=== PATIENT | male | born 1980 | race Caucasian/White ===

== ENCOUNTER 2020-08-25 14:33 | Emergency (ER) | payer OTHER, SELFPAY ==
[2020-08-25 17:01] VITALS: BP 141/84; PULSE 88; RESP 16; TEMP 37.4; O2SAT 98
--- NOTE | 2020-08-25 17:08 | ED.ABDPAIN ---
HPI - Abdominal Pain General Chief Complaint: Abdominal Pain Stated Complaint: L SIDED ABD PAIN Time Seen by Provider: 08/25/20 17:08 Source: patient Mode of arrival: ambulatory Limitations: no limitations History of Present Illness HPI narrative: Pain started yesterday, today worse, no dysuria, no hematuria MD elicited complaint: abdominal pain and flank pain Onset (ago): day(s) Pain Consistency: constant Severity: moderate Quality: stabbing and sharp Radiation: L flank Exacerbating factors: nothing Relieving factors: nothing Related Data Previous Rx's Medication Instructions Recorded ciprofloxacin HCl 500 mg PO BID #20 tab 08/25/20 metronidazole [Flagyl] 500 mg PO TID #30 tab 08/25/20 naproxen [Naprosyn] 500 mg PO BID #20 tab 08/25/20 Allergies Allergy/AdvReac Type Severity Reaction Status Date / Time No Known Allergies Allergy Unverified 07/27/20 17:40 [No Known Allergies*] Review of Systems Constitutional: Reports no additional constitutional complaints Eyes: Reports no additional eye complaints Denies dizziness Cardiovascular: Reports no additional cardiovascular complaints Respiratory: Reports as per HPI Gastrointestinal: Reports no additional gastrointestinal complaints Musculoskeletal: Reports no additional musculoskeletal complaints Skin/Breast: Denies rash Reports system reviewed and no additional complaints, except as documented, Denies dizziness and Denies Sensory deficit (Neuro) Psychiatric: Denies anxiety Physical Exam Vital Signs: Vital Signs: Vital Signs Temp Pulse Resp BP Pulse Ox 08/25/20 17:21 99.4 F 91 18 141/84 H 99 08/25/20 17:01 99.4 F 88 16 141/84 H 98 Body Mass Index 36.0 Const: Other: in obvious discomfort General: healthy appearing Nutritional Appearance: average body habitus Orientation/consciousness: oriented to person and patient oriented x3 Limitations: no limitations HENMT: Head: Yes normal to inspection Ears: external ears normal General nose exam: Normal external nose present Mouth: Normal oral and palatal mucosa present and oropharynx normal Throat: Yes posterior oropharynx normal Eyes: General: appearance normal, both eyes and all related structures Neck: Other: supple Neck: Yes normal visual inspection Chest: Chest palpation & inspection: normal inspection of the chest Resp: Auscultation: clear to auscultation bilaterally Cardio: Jugular venous distension: no JVD Rate: regular rate Rhythm: regular rhythm Heart sounds: S1 normal heart sound present and S2 normal heart sound present GI: Other: LLQ guarding to palpation Inspection: Yes normal to inspection Palpation (GI): Soft to palpation, Tenderness to palpation present (GI) and No hepatosplenomegaly present Auscultation: normal bowel sounds Back/Spine/Pelvis: Other: Left CVAT Skin: General skin exam: no rashes or lesions noted Neuro: General: oriented to person and patient oriented x3 Cranial nerves: Yes CN's II-XII intact bilaterally Motor exam (neuro): 5/5 motor strength present throughout Sensory Exam: No Sensory deficit (Neuro) Extrem: General: Yes normal to inspection Psych: Appearance: grossly normal Course Course Course Narrative: will treat for diverticulitis with cipro and flagyl MDM - Abdominal Pain Differential Diagnosis Differential diagnosis: Likely abdominal pain, diverticulitis and renal colic Differential diagnosis narrative:: patient with LLQ pain and flank pain CT consistent with diverticulitis Lab Data Attestation: I reviewed the patient's lab results. Result diagrams: 08/25/20 17:47 08/25/20 17:47 Labs: Lab Results 08/25/20 08/25/20 08/25/20 Range/Units 17:47 17:47 17:47 WBC 13.7 H (4.8-10.8) X10*3/uL RBC 4.78 (4.60-5.80) X10*6/uL Hgb 16.0 (14.0-18.0) g/dl Hct 44.6 (42-52) % MCV 93.3 (80-98) fL MCH 33.5 H (27.0-33.0) pg MCHC 35.9 (31.0-36.0) g/dl RDW 11.9 (11.0-16.0) % Plt Count 178 (160-400) X10*3/uL MPV 9.8 (9.4-12.4) fL Immature Gran % (Auto) 0.5 H (0.0-0.4) % Neut % (Auto) 76.2 H (45-73) % Lymph % (Auto) 10.9 L (20-40) % [place] % (Auto) 11.5 H (2-11) % Eos % (Auto) 0.6 (0-4) % Baso % (Auto) 0.3 (0-2) % Lymph # (Auto) 1.5 (1.2-4.9) X10*3/uL [place] # (Auto) 1.6 H (0.1-1.2) X10*3/uL Eos # (Auto) 0.1 (0.0-0.4) X10*3/uL Baso # (Auto) 0.0 (0.0-0.2) X10*3/uL Abs Immat Gran (auto) 0.07 H (0.00-0.03) X10*3/uL Absolute Neuts (auto) 10.4 H (2.0-8.3) X10*3/uL Absolute Nucleated RBC 0.000 (0.0-0.012) X10*3/uL Nucleated RBC % (auto) 0.0 (0.0-0.2) /100WBC Smear Tech's Comments VERIFIED Sodium 137 (135-145) mmol/L Potassium 4.5 (3.3-5.1) mmol/l Chloride 102 (96-108) mmol/L Carbon Dioxide 26 (22-29) mmol/L Anion Gap 14 (12-20) BUN 13 (9-16) mg/dL Creatinine 1.18 (0.5-1.4) mg/dL Estim Creat Clear Calc 95.7 Estimated GFR > 60 Random Glucose 100 (60-115) mg/dL Calcium 9.4 (8.4-10.2) mg/dL Urine Color YELLOW Urine Appearance CLEAR Urine pH 5.5 (5.0-8.0) Ur Specific [place] >= 1.030 H (1.005-1.025) Urine Protein NEG (NEG-TRACE) MG/DL Urine Glucose (UA) NEG (NEG) MG/DL Urine Ketones NEG (NEG) MG/DL Urine Blood NEG (NEG) Urine Nitrite NEG (NEG) Ur Leukocyte Esterase NEG (NEG) Imaging Data CT scan - abdomen: Radiologist's impression: Diverticulitis Discharge Plan Discharge Clinical Impression: Diverticulitis Patient Disposition: Home, Self-Care Instructions: Diverticulitis (ED), Diverticulitis Diet (ED) Additional Instructions: clear liquid diet for 2 days Prescriptions: New naproxen [Naprosyn] 500 mg tablet 500 mg PO BID Qty: 20 RF: 0 ciprofloxacin HCl 500 mg tablet 500 mg PO BID Qty: 20 RF: 0 metronidazole [Flagyl] 500 mg tablet 500 mg PO TID Qty: 30 RF: 0 PMFSH Past Medical History Medical History (Updated 08/25/20 @ 18:45 by Flynn Ho MD) No known health problems Social History Social History Alcohol intake: never Smoked in Last 30 Days: No Use of substances other than those prescribed or required for medical reasons: No Advance Directives: No Advance Directives Information Provided: Yes
--- NOTE | 2020-08-25 17:12 | CT_ITS ---
EXAMINATION: CT ABDOMEN AND PELVIS WITHOUT CONTRAST CLINICAL INFORMATION: Left flank pain in left lower quadrant pain COMPARISON: 01/25/2016 TECHNIQUE: Multidetector volumetric imaging was performed from the superior aspect of the liver through the pubic symphysis. Sagittal and coronal reformatted images were obtained on the technologist's workstation. This CT examination was performed using dose optimization techniques as appropriate, variously including the following: *Automated exposure control *Adjustment of mA and/or kV according to patient size (this includes techniques or standardized protocols for targeted exams where dose is matched to indication/reason for exam; i.e. extremities or head) *Use of iterative reconstruction technique DLP: 706 mGy-cm FINDINGS: LUNG BASES: The visualized lung bases are unremarkable. LIVER, GALLBLADDER, AND BILIARY TREE: The liver is normal in size, shape, and attenuation. No focal hepatic lesion or biliary ductal dilatation is present. The gallbladder is unremarkable with no evidence of radiopaque gallstones, gallbladder wall thickening, or obvious pericholecystic inflammatory changes. PANCREAS: Unremarkable. SPLEEN: Unremarkable. ADRENAL GLANDS: Unremarkable. KIDNEYS AND URETERS: The kidneys are normal in size, shape, and attenuation. No hydronephrosis, hydroureter, or calculi seen. No perinephric stranding. BLADDER: Unremarkable. GASTROINTESTINAL TRACT: Stomach and small bowel are nondilated. The appendix is not seen but there are no right lower quadrant inflammatory changes to suggest appendicitis. There is wall thickening, pericolonic fluid, and fat stranding of the distal left colon centered about a diverticulum, favoring mild acute diverticulitis over short segment colitis. There is fluid tracking along the left paracolic gutter. No evidence of abscess or perforation. ABDOMINAL WALL: No significant hernia is appreciated. LYMPH NODES: Normal. VASCULAR: Unremarkable. PELVIC VISCERA: Unremarkable. OSSEOUS STRUCTURES: Unremarkable. IMPRESSION: There is wall thickening and pericolonic inflammatory changes centered around a diverticulum of the distal left colon. The appearance favors mild acute diverticulitis over a short segment colitis. No evidence of abscess or perforation.
[2020-08-25 17:21] VITALS: BP 141/84; PULSE 91; RESP 18; TEMP 37.4; O2SAT 99; BMI 36.0
[2020-08-25] MEDS: 0.9 % Sodium Chloride 500 ML 1000 ML IV (17:50)
[2020-08-25] MEDS: Ketorolac Tromethamine 30 MG/ML VIAL IVPUSH (17:50)
[2020-08-25 17:53] LABS: Basophils Percent Auto 0.3 % (0-2); Eosinophils Absolute Auto 0.1 X10*3/uL (0.0-0.4); Eosinophils Percent Auto 0.6 % (0-4); Hematocrit 44.6 % (42-52); Imm Gran Abs Auto 0.07 X10*3/uL (0.00-0.03); Imm Gran Pct Auto 0.5 % (0.0-0.4); Lymphocytes Absolute Auto 1.5 X10*3/uL (1.2-4.9); Lymphocytes Percent Auto 10.9 % (20-40); MANUAL DIFF FLAG SCAN; Mean Corpuscular HGB Conc 35.9 g/dl (31.0-36.0); Mean Corpuscular Hemoglobin 33.5 pg (27.0-33.0); Mean Corpuscular Volume 93.3 fL (80-98); Mean Platelet Volume 9.8 fL (9.4-12.4); Monocytes Absolute Auto 1.6 X10*3/uL (0.1-1.2); Monocytes Percent Auto 11.5 % (2-11); Neutrophils Absolute Auto 10.4 X10*3/uL (2.0-8.3); Neutrophils Percent Auto 76.2 % (45-73); Platelet Count 178 X10*3/uL (160-400); Red Blood Count 4.78 X10*6/uL (4.60-5.80); Red Cell Distribution Width 11.9 % (11.0-16.0); SCAN SMEAR FLAG 1; White Blood Count 13.7 X10*3/uL (4.8-10.8)
[2020-08-25 17:54] LABS: Appearance Urine CLEAR; Color Urine YELLOW; Glucose Urine UA NEG (NEG); Leukocyte Esterase Urine NEG (NEG); Nitrite Urine NEG (NEG); PH 5.5 (5.0-8.0); Specific Gravity - Urine >= 1.030 (1.005-1.025); Urine Blood NEG (NEG); Urine Ketones NEG (NEG); Urine Protein NEG (NEG-TRACE)
[2020-08-25 18:00] VITALS: BP 116/65; PULSE 82; RESP 16; TEMP 37.7; O2SAT 96
[2020-08-25 18:14] LABS: Anion Gap 14 (12-20); Blood Urea Nitrogen 13 mg/dL (9-16); Calcium 9.4 mg/dL (8.4-10.2); Carbon Dioxide 26 mmol/L (22-29); Chloride 102 mmol/L (96-108); Creatinine Clr Calc Pharmacy 95.7; Estimated Glomerular Filt Rate > 60; Glucose Random 100 mg/dL (60-115); Potassium 4.5 mmol/l (3.3-5.1); Sodium 137 mmol/L (135-145)
[2020-08-25 18:17] LABS: SLIDE REVIEW VERIFIED
[2020-08-25] MEDS: metroNIDAZOLE/NS 500 MG/100 ML PIGGYBACK 100 MG IV (18:19)
[2020-08-25] MEDS: Morphine Sulfate 4 MG/ML CARTRIDGE IVPUSH ×2 (18:19→20:23)
[2020-08-25] MEDS: levoFLOXacin/D5W 500 MG/100 ML PIGGYBACK 100 MG IV (19:59)
--- NOTE | 2020-08-25 20:02 | PC.NURSE ---
REPORT TAKEN FROM DENIS HENDERSON. FIRST CONTACT WITH PT. RESTING IN BED SKIN PWD, RESPIRATIONS EVEN UNLABORED. LEVOFLOXACIN HUNG AND INFUSING WITHOUT DIFFICULTY. PT REPORTS 8/10 LLQ PAIN PERSISTS. NOTIFIED, AWAITING EYEGLASS LENS GRINDER.
[2020-08-25 20:21] VITALS: BP 112/57; PULSE 80; RESP 16; TEMP 37.3
--- NOTE | 2020-08-25 20:29 | PC.NURSE ---
PT MEDICATED FOR LLQ PAIN PER MAR, AWAITING IMPROVMENT IN SYMPTOMS, FINISH ABX, AND DC HOME.
== END 2020-08-25 21:33 | disposition home or self-care (01) ==
PROVIDERS: Emergency Provider Emergency Medicine; PCP Internal Medicine
DX: K57.32 Diverticulitis of large intestine without perforation or abscess without bleeding (principal); Z79.899 Other long term (current) drug therapy
CPT/HCPCS: 36415; 74176; 80048; 81003; 85025; 96361; 96365; 96375; 96376; 99284; J1885; J1956; J2270

== ENCOUNTER 2021-05-27 08:14 | Emergency (ER) | payer OTHER, SELFPAY ==
--- NOTE | ~2021-05-27 | CT_ITS ---
EXAMINATION: CT ABDOMEN AND PELVIS WITH CONTRAST CLINICAL INFORMATION: Lower abdominal pain. COMPARISON: 08/25/20. 01/25/16. TECHNIQUE: Multidetector volumetric images were obtained from the superior aspect of the liver through the pubic symphysis following administration 100 mL of Omnipaque 350 intravenous contrast. Sagittal and coronal reformatted images were obtained on the technologist's workstation. Oral contrast: No This CT examination was performed using dose optimization techniques as appropriate, variously including the following: *Automated exposure control *Adjustment of mA and/or kV according to patient size (this includes techniques or standardized protocols for targeted exams where dose is matched to indication/reason for exam; i.e. extremities or head) *Use of iterative reconstruction technique DLP: 862 mGy-cm FINDINGS: LUNG BASES: The visualized lung bases are unremarkable. LIVER, GALLBLADDER, AND BILIARY TREE: The liver is normal in size, shape, and attenuation. No focal hepatic lesion or biliary ductal dilatation is present. The gallbladder is unremarkable with no evidence of radiopaque gallstones, gallbladder wall thickening, or obvious pericholecystic inflammatory changes. PANCREAS: Unremarkable. SPLEEN: Unremarkable. ADRENAL GLANDS: Unremarkable. KIDNEYS AND URETERS: The kidneys are normal in size, shape, and attenuation. No hydronephrosis, hydroureter, or calculi seen. No perinephric stranding. BLADDER: Unremarkable. GASTROINTESTINAL TRACT: Extensive diverticular disease of the colon is again demonstrated. There is pericolonic edema of the junction of the descending and sigmoid colon consistent with acute diverticulitis. No extraluminal air or fluid is demonstrated. Inflammatory changes of the descending colon seen on the prior examination are resolved. The appendix is not visualized. No inflammatory changes are demonstrated in the right lower quadrant. The stomach and duodenum are unremarkable. No abnormality of the small bowel or mesentery is demonstrated. ABDOMINAL WALL: No significant hernia is appreciated. LYMPH NODES: Normal. VASCULAR: Unremarkable. Early calcific atherosclerotic changes are present in the abdominal aorta and iliac vessels. PELVIC VISCERA: Unremarkable. OSSEOUS STRUCTURES: Mild spondylosis is seen in the lower thoracic spine. Otherwise unremarkable. CT/CT abdomen pelvis w con IMPRESSION: 1. Extensive colonic diverticular disease. Inflammatory changes at the junction of the descending colon and sigmoid colon consistent with acute diverticulitis. No extraluminal gas or fluid is demonstrated. No collection. 2. Interval resolution of inflammatory changes seen previously more proximally in the descending colon. 3. No other abnormality.
[2021-05-27 08:31] VITALS: BP 141/79; PULSE 81; RESP 20; TEMP 36.8; O2SAT 97; BMI 36.0
--- NOTE | 2021-05-27 08:37 | ED.ABDPAIN ---
HPI - Abdominal Pain General Chief Complaint: Abdominal Pain Stated Complaint: abd pain Time Seen by Provider: 05/27/21 08:37 Source: patient Mode of arrival: ambulatory Limitations: no limitations History of Present Illness MD elicited complaint: abdominal pain Pertinent past history: diverticulitis Onset (ago): week(s) (1) Pain Consistency: constant Location: LLQ and suprapubic Severity: moderate Quality: aching Radiation: L flank Migration to: no migration Exacerbating factors: movement Relieving factors: nothing Context: history of similar episodes Associated symptoms: nausea Related Data Previous Rx's Medication Instructions Recorded ciprofloxacin HCl 500 mg PO BID #20 tab 08/25/20 metronidazole [Flagyl] 500 mg PO TID #30 tab 08/25/20 naproxen [Naprosyn] 500 mg PO BID #20 tab 08/25/20 hydrocodone-acetaminophen 1 tab PO Q6H PRN #12 tab 05/27/21 levofloxacin 500 mg PO DAILY 6 Days #6 tab 05/27/21 metronidazole [Flagyl] 500 mg PO BID 7 Days #14 tab 05/27/21 ondansetron 4 mg PO Q8H PRN #20 tab 05/27/21 Allergies Allergy/AdvReac Type Severity Reaction Status Date / Time No Known Allergies Allergy Unverified 07/27/20 17:40 [No Known Allergies*] Review of Systems Review of Systems Constitutional : No Weight loss, No Fever, No Chills ENT/Mouth : No sore throat, No Rhinorrhea Eyes: No Swelling, No Redness Cardiovascular : No Chest Pain, No SOB, NoEdema Respiratory : No Cough, No Sputum, No Wheezing Gastrointestinal : Positive Nausea, no Vomiting, no Diarrhea, positive abdominal Pain, No Hematochezia, No Melena Genitourinary : No Dysuria, No Urinary Frequency, No Hematuria, No Urgency Musculoskeletal : No joint pain, No Myalgias, No Joint Swelling Skin : No Skin Lesions, No rash Neuro : No Weakness, No Numbness, No Dizziness, No Headache Psych : No Anxiety/Panic, No Depression Heme/Lymph: No Bruising, No Lymphadenopathy Endocrine : No Polyuria, No Polydipsia All other systems reviewed and are negative. Physical Exam Vital Signs: Vital Signs: Last Vital Signs Temp 98.3 F 05/27/21 08:31 Pulse 68 05/27/21 10:52 Resp 16 05/27/21 10:52 BP 122/68 05/27/21 10:52 Pulse Ox 97 05/27/21 10:52 Body Mass Index 36.0 Appearance: Alert. Oriented X3. No acute distress. Eyes: Pupils equal, round and reactive to light. ENT: Pharynx normal. Neck: Normal inspection. Neck supple. CVS: Normal heart rate and rhythm. Pulses normal. Respiratory: No respiratory distress. Breath sounds normal. Abdomen: Soft and moderate LLQ ttp no rebound or guarding Skin: Skin warm and dry. Normal skin color. Normal skin turgor. Extremities: No lower extremity edema. No calf ttp Neuro: Oriented X 3. No motor deficit. No sensory deficit. Course Course Course Narrative: at this time can tolerate PO stable for DC MDM - Abdominal Pain MDM Narrative Medical decision making narrative: 41 yo male with hx of diverticulitis at this time will need labs, IVF, IV morphine for pain, CT scan for diverticulitis, dispo per results and findings. Differential Diagnosis Differential diagnosis: Likely abdominal pain, calculus of kidney and diverticulitis; Unlikely acute appendicitis Lab Data Result diagrams: 05/27/21 08:55 05/27/21 08:55 Labs: Lab Results 05/27/21 05/27/21 05/27/21 Range/Units 08:55 08:55 08:55 WBC 8.5 (4.8-10.8) X10*3/uL RBC 4.39 L (4.60-5.80) X10*6/uL Hgb 14.5 (14.0-18.0) g/dl Hct 40.7 L (42-52) % MCV 92.7 (80-98) fL MCH 33.0 (27.0-33.0) pg MCHC 35.6 (31.0-36.0) g/dl RDW 11.7 (11.0-16.0) % Plt Count 153 L (160-400) X10*3/uL MPV 9.6 (9.4-12.4) fL Immature Gran % (Auto) 0.5 H (0.0-0.4) % Neut % (Auto) 63.3 (45-73) % Lymph % (Auto) 22.3 (20-40) % [place] % (Auto) 10.0 (2-11) % Eos % (Auto) 3.4 (0-4) % Baso % (Auto) 0.5 (0-2) % Lymph # (Auto) 1.9 (1.2-4.9) X10*3/uL [place] # (Auto) 0.9 (0.1-1.2) X10*3/uL Eos # (Auto) 0.3 (0.0-0.4) X10*3/uL Baso # (Auto) 0.0 (0.0-0.2) X10*3/uL Abs Immat Gran (auto) 0.04 H (0.00-0.03) X10*3/uL Absolute Neuts (auto) 5.4 (2.0-8.3) X10*3/uL Absolute Nucleated RBC 0.000 (0.0-0.012) X10*3/uL Nucleated RBC % (auto) 0.0 (0.0-0.2) /100WBC Smear Tech's Comments Not Reportable Sodium 139 (135-145) mmol/L Potassium 4.4 (3.3-5.1) mmol/L Chloride 108 (96-108) mmol/L Carbon Dioxide 23 (22-29) mmol/L Anion Gap 12 (12-20) BUN 14 (9-16) mg/dL Creatinine 1.09 (0.5-1.4) mg/dL Estim Creat Clear Calc 102.6 Estimated GFR > 60 Random Glucose 124 H (60-115) mg/dL Calcium 8.9 (8.4-10.2) mg/dL Urine Color YELLOW Urine Appearance CLEAR Urine pH 6.0 (5.0-8.0) Ur Specific [place] 1.025 (1.005-1.025) Urine Protein NEG (NEG-TRACE) MG/DL Urine Glucose (UA) NEG (NEG) MG/DL Urine Ketones NEG (NEG) MG/DL Urine Blood NEG (NEG) Urine Nitrite NEG (NEG) Ur Leukocyte Esterase NEG (NEG) Discharge Plan Discharge Clinical Impression: Diverticulitis Patient Disposition: Home, Self-Care Instructions: Diverticulitis (ED) Additional Instructions: return to ED for any worsening symptoms or concerns Prescriptions: New levofloxacin 500 mg tablet 500 mg PO DAILY 6 Days Qty: 6 RF: 0 hydrocodone-acetaminophen 5-325 mg tablet 1 tab PO Q6H PRN (Reason: pain) Qty: 12 RF: 0 metronidazole [Flagyl] 500 mg tablet 500 mg PO BID 7 Days Qty: 14 RF: 0 ondansetron 4 mg tablet,disintegrating 4 mg PO Q8H PRN (Reason: nausea and vomiting) Qty: 20 RF: 0 No Action naproxen [Naprosyn] 500 mg tablet 500 mg PO BID Qty: 20 RF: 0 ciprofloxacin HCl 500 mg tablet 500 mg PO BID Qty: 20 RF: 0 metronidazole [Flagyl] 500 mg tablet 500 mg PO TID Qty: 30 RF: 0 Referrals: Giuseppe Hope MD [Primary Care Provider] - 2 days (you're going to need to see your doctor for GI follow up) Stand Alone Forms: Work/School Release [facility] Past Medical History Attestation statement: The following information was validated with the patient. Medical History (Updated 05/27/21 @ 11:28 by Laura Mishra DO) Diverticulitis No known health problems Surgical History Hx of appendectomy Social History Social History Alcohol intake: current Alcohol intake frequency: holidays/special occasions only Patient Tobacco Use Status: Current everyday Tobacco user Smoked in Last 30 Days: Yes Use of substances other than those prescribed or required for medical reasons: No Advance Directives: Yes Advance Directives Information Provided: Yes Advance Directives on File: No
--- NOTE | 2021-05-27 08:56 | PC.NURSE ---
Peripheral iv inserted in right ac with a 20 gauge insyte. Labs drawn, site flushe with ns and secured. Pt tolerated well
[2021-05-27 09:05] LABS: Eosinophils Absolute Auto 0.3 X10*3/uL (0.0-0.4); MANUAL DIFF FLAG SCAN; Mean Corpuscular Volume 92.7 fL (80-98); PLT CLUMP 1; SCAN SMEAR FLAG 1
[2021-05-27 09:07] LABS: Basophils Percent Auto 0.5 % (0-2); Eosinophils Percent Auto 3.4 % (0-4); Glucose Urine UA NEG (NEG); Hematocrit 40.7 % (42-52); Hemoglobin 14.5 g/dl (14.0-18.0); Imm Gran Abs Auto 0.04 X10*3/uL (0.00-0.03); Imm Gran Pct Auto 0.5 % (0.0-0.4); Leukocyte Esterase Urine NEG (NEG); Lymphocytes Absolute Auto 1.9 X10*3/uL (1.2-4.9); Lymphocytes Percent Auto 22.3 % (20-40); Mean Corpuscular HGB Conc 35.6 g/dl (31.0-36.0); Mean Platelet Volume 9.6 fL (9.4-12.4); Monocytes Absolute Auto 0.9 X10*3/uL (0.1-1.2); Neutrophils Absolute Auto 5.4 X10*3/uL (2.0-8.3); Neutrophils Percent Auto 63.3 % (45-73); Nitrite Urine NEG (NEG); Platelet Count 153 X10*3/uL (160-400); Red Blood Count 4.39 X10*6/uL (4.60-5.80); Red Cell Distribution Width 11.7 % (11.0-16.0); Specific Gravity - Urine 1.025 (1.005-1.025); Urine Blood NEG (NEG); Urine Ketones NEG (NEG); Urine Protein NEG (NEG-TRACE); White Blood Count 8.5 X10*3/uL (4.8-10.8)
[2021-05-27] MEDS: 0.9 % Sodium Chloride 1,000 ML 999 ML IVCONT (09:07)
[2021-05-27] MEDS: ondansetron HCL 4 MG/2 ML VIAL IVPUSH (09:07)
[2021-05-27 09:08] VITALS: RESP 16
[2021-05-27 09:08] LABS: Appearance Urine CLEAR; Color Urine YELLOW
[2021-05-27] MEDS: Morphine Sulfate 4 MG/ML CARTRIDGE IVPUSH (09:08)
[2021-05-27 09:11] VITALS: BP 128/72; PULSE 70; RESP 16; O2SAT 94
[2021-05-27] MEDS: Ketorolac Tromethamine 30 MG/ML VIAL IVPUSH (09:19)
[2021-05-27 09:34] LABS: Anion Gap 12 (12-20); Blood Urea Nitrogen 14 mg/dL (9-16); Calcium 8.9 mg/dL (8.4-10.2); Carbon Dioxide 23 mmol/L (22-29); Chloride 108 mmol/L (96-108); Creatinine Clr Calc Pharmacy 102.6; Estimated Glomerular Filt Rate > 60; Glucose Random 124 mg/dL (60-115); Potassium 4.4 mmol/L (3.3-5.1); Sodium 139 mmol/L (135-145)
[2021-05-27 09:40] VITALS: BP 114/64; PULSE 66; RESP 16; O2SAT 98
[2021-05-27 10:52] VITALS: BP 122/68; PULSE 68; RESP 16; O2SAT 97
[2021-05-27] MEDS: iohexoL 350 MG/ML 100 ML INFUS..BTL IV (10:54)
[2021-05-27] MEDS: levoFLOXacin 500 MG TABLET PO (11:34)
[2021-05-27] MEDS: metroNIDAZOLE 500 MG TABLET PO (11:34)
[2021-05-27 13:58] LABS: Alanine Aminotransferase 76 U/L (0-40); Albumin Level 4.3 g/dL (3.5-5.0); Alkaline Phosphatase 63 U/L (39-117); Aspartate Amino Transferase 26 U/L (5-37); Bilirubin Direct 0.2 mg/dL (0.0-0.5); Bilirubin Total 0.8 mg/dL (0.0-1.0); Lipase 82 U/L (8-78)
== END 2021-05-27 11:39 | disposition home or self-care (01) ==
PROVIDERS: Emergency Provider Emergency Medicine; PCP Internal Medicine
DX: K57.32 Diverticulitis of large intestine without perforation or abscess without bleeding (principal); R10.32 Left lower quadrant pain; F17.200 Nicotine dependence, unspecified, uncomplicated; Z71.6 Tobacco abuse counseling; Z79.899 Other long term (current) drug therapy
CPT/HCPCS: 36415; 74177; 80048; 80076; 81003; 83690; 83735; 85025; 96365; 96375; 99284; 99285; J1885; J2270; J2405; Q9967

== ENCOUNTER 2021-10-26 12:03 | Day surgery (SDC) | payer OTHER, SELFPAY ==
--- NOTE | 2021-10-24 13:45 | P.CONAN_ITS ---
Documented by User: Goergia Valera NP 10/24/21 13:46 HPI - Anesthesia Eval Consult details Narrative: 41yo M for Colonoscopy [facility] Past Medical History Medical History (Updated 05/28/21 @ 00:01 by Background Veronica) Diverticulitis No known health problems Surgical History Surgical History Hx of appendectomy Social History Social History Alcohol intake: current Alcohol intake frequency: a few times a month Patient Tobacco Use Status: Current everyday Tobacco user Tobacco use type: Cigarette Cigarette Packs Per Day: 1 Cigarettes Per Day: 20.0 Years Smoked: 25 Smoked in Last 30 Days: Yes Use of substances other than those prescribed or required for medical reasons: No Are you DNR?: No Advance Directives: No Advance Directives Information Provided: Yes Meds Allergies Allergy/AdvReac Type Severity Reaction Status Date / Time No Known Allergies Allergy Verified 10/26/21 12:09 [No Known Allergies*] Home Medications Medication Instructions Recorded Confirmed Last Taken Type No Known Home Meds 10/19/21 10/19/21 Unknown History Exam Exam Date and Time: October 24, 2021 1345 Pertinent Lab Results Pertinent Lab Results: Laboratory Tests 05/27/21 05/27/21 08:55 08:55 WBC 8.5 Hgb 14.5 Hct 40.7 L Plt Count 153 L Sodium 139 Potassium 4.4 Chloride 108 Carbon Dioxide 23 BUN 14 Creatinine 1.09 Assessment and Plan Assessment Anesthesia Assessment: Chart Reviewed Documented by User: Hortencia Caldwell MD 10/26/21 13:10 [facility] Past Medical History Medical History (Updated 05/28/21 @ 00:01 by Background Daricky) Diverticulitis No known health problems Family History Family history of problems with anesthesia: No Surgical History Surgical History Hx of appendectomy History of Problems with Anesthesia: No Social History Social History Alcohol intake: current Alcohol intake frequency: a few times a month Patient Tobacco Use Status: Current everyday Tobacco user Tobacco use type: Cigarette Cigarette Packs Per Day: 1 Cigarettes Per Day: 20.0 Years Smoked: 25 Smoked in Last 30 Days: Yes Use of substances other than those prescribed or required for medical reasons: No Are you DNR?: No Advance Directives: No Advance Directives Information Provided: Yes Meds Allergies Allergy/AdvReac Type Severity Reaction Status Date / Time No Known Allergies Allergy Verified 10/26/21 12:09 [No Known Allergies*] Home Medications Medication Instructions Recorded Confirmed Last Taken Type No Known Home Meds 10/19/21 10/19/21 Unknown History Exam Airway Mallampati Class: II TM Dist: >3cm Neck ROM: Full Heart: rrr Lungs: cta Assessment and Plan Assessment Anesthesia Assessment: Anesthesia Plan Discussed and Chart Reviewed Final Anesthetic Review Family History of Problems with Anesthesia: No History of Problems with Anesthesia: No NPO: Yes ASA Class: II Final Preanesthetic Review: No Changes in Pt Med Stat, Meds/Allgs Chart Reviewed and Consent Obtained/Reviewed Patient Risk: Intermediate Procedure Risk: Intermediate Anesthetic Plan Anesthetic Plan: MAC: Disposition: Standard PACU
[2021-10-26 12:12] VITALS: BMI 36.0
[2021-10-26 12:20] VITALS: BP 145/86; PULSE 76; RESP 16; TEMP 36.5; O2SAT 97
[2021-10-26] MEDS: Lactated Ringers 1,000 ML 100 ML IVCONT (12:36)
[2021-10-26 13:57] VITALS: BP 129/67; PULSE 77; RESP 12; TEMP 36.2; O2SAT 95
--- NOTE | 2021-10-26 14:03 | PM.OP ---
Brief Operative Note Date of Service: 10/26/21 Pre-op diagnosis: Diverticulitis Post-op diagnosis: other (Diverticulosis) Procedure: Colonoscopy to the cecum and TI Surgeon: Alfredo Anderson Anesthesia: MAC Was an Head Banquet Waitress used for this Procedure?: No Estimated blood loss (mL): 0 Pathology: none sent Condition: stable Disposition: PACU
[2021-10-26 14:12] VITALS: BP 132/84; PULSE 74; RESP 16; TEMP 36.2; O2SAT 96
--- NOTE | 2021-10-26 16:49 | OP_ITS ---
SURGEON: Alfredo Anderson MD INDICATIONS: The patient presents for evaluation of history of diverticulitis and abnormal CT scan of colon. Full consent was obtained from him for this, including risks of bleeding and perforation. PREOPERATIVE DIAGNOSIS: History of diverticulitis and abnormal CT scan of colon. POSTOPERATIVE DIAGNOSIS: History of diverticulitis and abnormal CT scan of colon, diverticulosis and internal hemorrhoids. PROCEDURE PERFORMED: Colonoscopy to the cecum and terminal ileum. ESTIMATED BLOOD LOSS: COMPLICATIONS: ANESTHESIA: Preop medication used, monitored anesthesia care. ASSISTANTS: SPECIMENS: DESCRIPTION OF PROCEDURE: The patient was placed in the left lateral decubitus position. The digital rectal exam revealed no abnormalities. The Olympus video pediatric colonoscope was entered into the rectum and advanced easily to the cecum. Once in the cecum, I did identify normal-appearing cecal pouch with appendiceal orifice and a normal-appearing ileocecal valve. The terminal ileum was cannulated and appeared normal. Scope was withdrawn back in the colon. The entire cecum and ileocecal valve appeared normal. The scope was slowly withdrawn assessing all mucosal surfaces carefully. Preparation was excellent. I did not visualize any sign of polyps, colitis, nor angiodysplasia. There was a [id number] amount of diverticulosis in the sigmoid colon. In the rectum, the scope was retroflexed visualizing small internal hemorrhoids, but no other pathology. The rectal mucosa appeared normal. Scope was straightened and withdrawn from the patient. He tolerated the procedure well and was returned to the recovery area in stable condition. IMPRESSION: 1. Diverticulosis. 2. Internal hemorrhoids. PLAN: Given the negative colonoscopy in regard to polyps, I would recommend a repeat colonoscopy in 10 years. He was advised to continue Metamucil. If he continues to have intermittent episodes of diverticulitis, I would then recommend eventual surgery consultation given his young age. This has been discussed with his . If things are stable, he would otherwise see me on a p.r.n. basis. MD JAMSHID Galvan/TRAVON / [phone]
== END 2021-10-26 15:11 | disposition home or self-care (01) ==
PROVIDERS: PCP Internal Medicine; Visit Provider Internal Medicine
PROC: 0DJD8ZZ Inspection of Lower Intestinal Tract, Via Natural or Artificial Opening Endoscopic (ICD-10-PCS; CPT 45378; principal; 2021-10-26 13:00)
DX: K57.30 Diverticulosis of large intestine without perforation or abscess without bleeding (principal); Z87.19 Personal history of other diseases of the digestive system; K64.8 Other hemorrhoids; F17.210 Nicotine dependence, cigarettes, uncomplicated
CPT/HCPCS: 45378; J3010

== ENCOUNTER 2021-11-10 12:08 | Outpatient (REF) | payer OTHER, SELFPAY ==
[2021-11-10 13:25] LABS: COVID-19 Test Positive (Negative)
== END 2021-11-10 12:09 | disposition home or self-care (01) ==
LOC: HO.LAB 12:08
PROVIDERS: Visit Provider Internal Medicine
DX: Z20.822 Contact with and (suspected) exposure to COVID-19 (principal)
CPT/HCPCS: 36415; 87635; C9803

== ENCOUNTER 2025-01-06 16:26 | Emergency (ER) | payer OTHER, SELFPAY ==
--- NOTE | 2025-01-06 | ECG_ITS ---
Test Reason : CHEST PAIN Blood Pressure : */* mmHG Vent. Rate : 71 BPM Atrial Rate : 71 BPM P-R Int : 148 ms QRS Dur : 84 ms QT Int : 364 ms P-R-T Axes : 42 8 31 degrees QTcB Int : 395 ms Normal sinus rhythm Normal ECG When compared with ECG of 07-Feb-2017 06:57, No significant change was found Referred By: Generic ED Physician Electronically Signed By: Garrison Nash
--- NOTE | ~2025-01-06 | XR_ITS ---
CLINICAL HISTORY: Chest pain 1 view chest x-ray Comparison: None Findings: No consolidation or effusion. Prominent cardiac silhouette. No acute fracture. IMPRESSION: 1. No acute findings. This document has been electronically signed by: Tyler Taylor MD on 01/06/2025 20:04:14
[2025-01-06 16:40] VITALS: BP 147/83; PULSE 69; RESP 18; TEMP 36.4; O2SAT 97; BMI 38.0
[2025-01-06 19:38] LABS: Basophils Percent Auto 0.5 % (0-2); Eosinophils Absolute Auto 0.2 X10*3/uL (0.0-0.4); Eosinophils Percent Auto 2.3 % (0-4); Hematocrit 42.9 % (42.0-52.0); Hemoglobin 15.7 g/dl (14.0-18.0); Imm Gran Abs Auto 0.03 X10*3/uL (0.00-0.03); Imm Gran Pct Auto 0.4 % (0.0-0.4); Lymphocytes Absolute Auto 3.2 X10*3/uL (1.2-4.9); Lymphocytes Percent Auto 41.5 % (20-40); MANUAL DIFF FLAG NO; Mean Corpuscular HGB Conc 36.6 g/dl (31.0-36.0); Mean Corpuscular Hemoglobin 33.1 pg (27.0-33.0); Mean Corpuscular Volume 90.5 fL (80.0-98.0); Mean Platelet Volume 9.3 fL (9.4-12.4); Monocytes Absolute Auto 0.7 X10*3/uL (0.1-1.2); Monocytes Percent Auto 8.7 % (2-11); Neutrophils Absolute Auto 3.6 x10*3/uL (2.0-8.3); Neutrophils Percent Auto 46.6 % (45-73); Platelet Count 155 X10*3/uL (160-400); Red Blood Count 4.74 X10*6/uL (4.60-5.80); Red Cell Distribution Width 12.2 % (11.0-16.0); White Blood Count 7.8 X10*3/uL (4.8-10.8)
[2025-01-06 19:43] LABS: INTERNATIONAL NORM RATIO 1.2 (0.9-1.1); Prothrombin Time 14.2 SEC (10.9-12.4)
[2025-01-06 19:52] LABS: Alanine Aminotransferase 156 U/L (0-40); Albumin Level 4.4 g/dL (3.5-5.0); Alkaline Phosphatase 68 U/L (39-117); Anion Gap 14 (12-20); Aspartate Amino Transferase 70 U/L (5-37); Bilirubin Total 0.6 mg/dL (0.0-1.0); Blood Urea Nitrogen 15 mg/dL (9-16); Calcium 9.3 mg/dL (8.4-10.2); Carbon Dioxide 24 mmol/L (22-29); Chloride 105 mmol/L (96-108); Creatinine Clr Calc Pharmacy 110.4; Estimated Glomerular Filt Rate > 60; Glucose Random 133 mg/dL (60-115); Potassium 4.1 mmol/L (3.3-5.1); Sodium 139 mmol/L (135-145); Total Protein 7.6 g/dL (6.5-8.0)
[2025-01-06 19:57] LABS: B Type Natriuretic Peptide < 10 pg/mL (<100)
[2025-01-06 19:59] LABS: Troponin-I High Sensitivity < 2.7 ng/L (<3.5-35.0)
[2025-01-06 20:04] LABS: Partial Thromboplastin Time 71.9 SEC (26.0-36.8)
--- NOTE | 2025-01-06 20:07 | PC.NURSE ---
took critical from lab PTT 71.9. Provider in triage Perry notified
[2025-01-06 20:46] LABS: Partial Thromboplastin Time 71.2 SEC (26.0-36.8)
--- NOTE | 2025-01-06 22:35 | ED_ITS ---
HPI - Chest Pain General Chief Complaint: Chest Pain Stated Complaint: CP, sent by Urgent care Time Seen by Provider: 01/06/25 22:33 History of Present Illness ED Provider: Nohelia MENDOZA narrative: 44-year-old male presenting for chest pain. Patient states that while in bed last night he experienced sharp left-sided chest pain and he has since been experiencing this chest pain intermittently throughout the day. He was seen at urgent care who recommended to come to the emergency department for further evaluation. Patient states that the chest pain is not associated with activity and he does not experience shortness of breath or diaphoresis. Patient denies recent travel, recent surgeries, history of blood clots. Related Data Home Medications ?Medication ?Instructions ?Recorded ?Confirmed No Known Home Meds 10/19/21 10/19/21 Allergies Allergy/AdvReac Type Severity Reaction Status Date / Time No Known Allergies Allergy Verified 01/06/25 16:43 [No Known Allergies*] Review of Systems 2 Review of Systems: Yes all other systems are reviewed and are negative PMFSH Past Medical History Medical History Diverticulitis No known health problems Surgical History Hx of appendectomy Social History Social History Alcohol intake: current Alcohol intake frequency: a few times a month Patient Tobacco Use Status: Current everyday Tobacco user Tobacco use type: Cigarette Cigarette Packs Per Day: 1 Cigarettes Per Day: 20.0 Years Smoked: 25 Advance Directives: No Advance Directives Information Provided: Yes Physical Exam 2 Vital Signs: Vital Signs: Last Vital Signs Temp 97.5 F 01/06/25 16:40 Pulse 69 01/06/25 16:40 Resp 18 01/06/25 16:40 BP 147/83 H 01/06/25 16:40 Pulse Ox 97 01/06/25 16:40 O2 Del Method Room Air 01/06/25 16:40 BMI result Body Mass Index 38.0 Well-appearing male in no acute distress A&O x4; normal speech and cognition Walking with steady gait Lungs clear to auscultation bilaterally Normal S1-S2 regular rate rhythm Abdomen is soft nontender nondistended No signs of bleeding in mouth or externally Medical Decision Making Medical Decision Making MDM Narrative: 44-year-old male presenting for chest pain -I am concerned for the following; atypical chest pain, costochondritis, pruritus, acid reflux -low suspicion for ACS given reassuring physical exam and HPI; low heart score -patient has none of the following; calf swelling, recent surgeries/hospitalization, recent travel - percs out; I do not think this is PE -labs and imaging studies ordered Lab and imaging interpretations: -no overt signs of ischemia patient's ECG -I do not appreciate pneumo or consolidation on chest x-ray; no acute findings per Radiology impression -no white count, stable H&H, electrolytes within normal limits -negative BNP -elevated PTT -negative troponins x2 Unclear etiology for elevated PTT however pt has no signs of active bleeding; no petechia or bruising/bleeding in mouth Pt does states that for years he intermittently experiences bleeding when brushing his mouth and blowing his nose; I explained that I do not think this is related to his chest pain however I recommend he follow up with his PCP and a automotive airconditioning mechanic I obtained a repeat ecg which is unchanged. He has not had any episodes of chest pain here in the ED. I walked him up and down the he and he did not experience chest pain or sob I feel that patient can be discharged with outpatient followup. He does not need admission for additional testing. I gave him follow up instructions and return precautions Lab Data 01/06/25 19:33 01/06/25 19:33 Labs: Lab Results 01/06/25 01/06/25 01/06/25 Range/Units 19:33 20:32 23:03 WBC 7.8 (4.8-10.8) X10*3/uL RBC 4.74 (4.60-5.80) X10*6/uL Hgb 15.7 (14.0-18.0) g/dl Hct 42.9 (42.0-52.0) % MCV 90.5 (80.0-98.0) fL MCH 33.1 H (27.0-33.0) pg MCHC 36.6 H (31.0-36.0) g/dl RDW 12.2 (11.0-16.0) % Plt Count 155 L (160-400) X10*3/uL MPV 9.3 L (9.4-12.4) fL Immature Gran % (Auto) 0.4 (0.0-0.4) % Neut % (Auto) 46.6 (45-73) % Lymph % (Auto) 41.5 H (20-40) % [place] % (Auto) 8.7 (2-11) % Eos % (Auto) 2.3 (0-4) % Baso % (Auto) 0.5 (0-2) % Lymph # (Auto) 3.2 (1.2-4.9) X10*3/uL [place] # (Auto) 0.7 (0.1-1.2) X10*3/uL Eos # (Auto) 0.2 (0.0-0.4) X10*3/uL Baso # (Auto) 0.0 (0.0-0.2) X10*3/uL Abs Immat Gran (auto) 0.03 (0.00-0.03) X10*3/uL Absolute Neuts (auto) 3.6 (2.0-8.3) x10*3/uL Absolute Nucleated RBC 0.000 (0.0-0.012) X10*3/uL Nucleated RBC % (auto) 0.0 (0.0-0.2) /100WBC PT 14.2 H (10.9-12.4) SEC INR 1.2 H (0.9-1.1) APTT 71.9 H* 71.2 H* (26.0-36.8) SEC Sodium 139 (135-145) mmol/L Potassium 4.1 (3.3-5.1) mmol/L Chloride 105 (96-108) mmol/L Carbon Dioxide 24 (22-29) mmol/L Anion Gap 14 (12-20) BUN 15 (9-16) mg/dL Creatinine 1.01 (0.5-1.4) mg/dL Estim Creat Clear Calc 110.4 Estimated GFR > 60 Random Glucose 133 H (60-115) mg/dL Calcium 9.3 (8.4-10.2) mg/dL Total Bilirubin 0.6 (0.0-1.0) mg/dL AST 70 H (5-37) U/L ALT 156 H (0-40) U/L Alkaline Phosphatase 68 (39-117) U/L Troponin I High Sens < 2.7 < 2.7 (<3.5-35.0) ng/L B-Natriuretic Peptide < 10 (<100) pg/mL Total Protein 7.6 (6.5-8.0) g/dL Albumin 4.4 (3.5-5.0) g/dL Lipase 18 Cancelled (8-78) U/L Influenza Type A (PCR) NEGATIVE (Negative) Influenza Type B (PCR) NEGATIVE (Negative) RSV RNA Qual (PCR) NEGATIVE (Negative) SARS-CoV-2 RNA (RT-PCR) NEGATIVE (Negative) Discharge Plan Discharge Clinical Impression: Elevated partial thromboplastin time (PTT) Chest pain Qualifiers: Chest pain type: unspecified Qualified Code(s): R07.9 - Chest pain, unspecified Patient Disposition: Home, Self-Care Instructions: Vitamin K in Foods (ED) Additional Instructions: Please follow up with your PCP in the next 24-48 hours for reassessment. You should also follow up with the automotive airconditioning mechanic for additional blood testing. If you develop any new or worsening symptoms please return to the emergency department I listed a few automotive airconditioning mechanic you can attempt to follow up with Prescriptions: No Action No Known Home Meds Referrals: Alfredo Root MD [Physician] - Sudha Yeung MD [Physician] - Kerline Rich MD [Physician] - Print Language: Estonian
[2025-01-06 23:26] LABS: Lipase 18 U/L (8-78)
[2025-01-06 23:32] LABS: Troponin-I High Sensitivity < 2.7 ng/L (<3.5-35.0)
[2025-01-06 23:44] LABS: Influenza A PCR NEGATIVE (Negative); Influenza B PCR NEGATIVE (Negative); Resp Syncy Virus RNA Qual PCR NEGATIVE (Negative); SARS COV2 PCR INHOUSE NEGATIVE (Negative)
--- NOTE | 2025-01-06 23:57 | ECG_ITS ---
Test Reason : repeat Blood Pressure : */* mmHG Vent. Rate : 58 BPM Atrial Rate : 58 BPM P-R Int : 156 ms QRS Dur : 84 ms QT Int : 396 ms P-R-T Axes : 48 17 37 degrees QTcB Int : 388 ms Sinus bradycardia Nonspecific T wave abnormality Abnormal ECG When compared with ECG of 06-Jan-2025 16:36, No significant change was found Referred By: Nain Pozo Electronically Signed By: Garrison Nash
--- NOTE | 2025-01-07 00:17 | MHC.EDTECH ---
Liver panel lab verbally cancelled per doctor
[2025-01-07 00:33] LABS: Bilirubin Direct 0.2 mg/dL (0.0-0.5)
[2025-01-07 00:51] VITALS: BP 140/81; PULSE 64; RESP 18; O2SAT 97
--- NOTE | 2025-01-07 01:05 | PC.NURSE ---
pt ambulatory at discharge pt at bedside pt verbalized understanding of discharge plan
[2025-01-07 01:06] VITALS: BP 140/81; PULSE 64; RESP 18; TEMP -17.7; TEMP 0; O2SAT 97
== END 2025-01-07 01:07 | disposition home or self-care (01) ==
PROVIDERS: Physician Assistant; Emergency Provider Student in an Organized Health Care Education/Training Program; PCP Family Medicine
DX: R07.9 Chest pain, unspecified (principal); R79.1 Abnormal coagulation profile; F17.210 Nicotine dependence, cigarettes, uncomplicated; Z03.818 Encounter for observation for suspected exposure to other biological agents ruled out
CPT/HCPCS: 0241U; 36415; 71045; 80053; 82248; 83690; 83880; 84484; 85025; 85610; 85730; 93005; 99283; 99284

== ENCOUNTER → 2025-01-06 16:36 | Outpatient (BNV) | payer OTHER, SELFPAY | PROVIDERS: Emergency Provider Student in an Organized Health Care Education/Training Program; PCP Family Medicine; Visit Provider Internal Medicine Cardiovascular Disease | DX: R07.9 Chest pain, unspecified (principal); R00.1 Bradycardia, unspecified | CPT/HCPCS: 93010 ==

== ENCOUNTER → 2025-01-06 19:15 | Outpatient (BNV) | payer OTHER, SELFPAY | PROVIDERS: Visit Provider Radiology Diagnostic Radiology | DX: R07.9 Chest pain, unspecified (principal) | CPT/HCPCS: 71045 ==

== ENCOUNTER 2025-06-22 14:46 | Outpatient (AMB) | payer OTHER, SELFPAY ==
--- NOTE | 2025-06-22 14:48 | A.OFFPC_ITS ---
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 Allergies No Known Allergies (No Known Allergies*) Allergy (Verified 06/22/25 14:51) Medication List - Last Reconciled 06/22/25 by Kirk Salinas MD No Known Home Meds Tobacco use date assessed: 06/22/25 Dental Screening Dental Screen Date: 06/22/25 Did you have a dental visit in the last 12 months?: No Did you have a dental problem in the last 6 months where you did not have access to dental care?: No Was dental information given to patient?: Patient has dentist HPI Frontload Driver / Annual PE HPI Details New Patient? ?? Prior PCP:?Dr Geronimo Last office visit/CPE:? 1 yr Acute issue(s):? Chest Pain ?? PMHx:? Diverticulitis. SurgHx:? Appendix in his 30s. FHx:? Sister: DM. SocHx: 1 ppd. EtOH: 12 pack about once a week. No drugs PFSH Medical History Diverticulitis No known health problems Surgical History Hx of appendectomy Family History (Updated 06/22/25 @ 15:00 by Tonie Burnette MA) Father Asthma Sister Diabetes Social History (Updated 06/22/25 @ 14:54 by Tonie Burnette MA) Housing: House Alcohol intake: current Alcohol intake frequency: holidays/special occasions only Patient Tobacco Use Status: Current everyday Tobacco user Tobacco use type: Cigarette Cigarette Packs Per Day: 1 Cigarettes Per Day: 20.0 Years Smoked: 25 e-Cigarette/Vaping Use: Never Used Second Hand Smoke Exposure: Yes service: No Current occupational status: employed Current occupation: [employer] Current occupational exposures/hazards: Yes Cognitive needs: No Hearing needs: No Vision needs: No Questionnaire PHQ-9 Over the last 2 weeks, how often have you been bothered by any of the following problems? 1. Little interest or pleasure in doing things: not at all 2. Feeling down, depressed, or hopeless: not at all 3. Trouble falling or staying asleep, or sleeping too much: several days 4. Feeling tired or having little energy: several days 5. Poor appetite or overeating: not at all 6. Feeling bad about yourself - or that you are a failure or have let yourself or your family down: not at all 7. Trouble concentrating on things, such as reading the newspaper or watching television: not at all 8. Moving or speaking so slowly that other people could have noticed. Or the opposite - being so fidgety or restless that you have been moving around a lot more than usual: not at all 9. Thoughts that you would be better off or of hurting yourself in some way: not at all Total score: 2 Depression Screening Interpretation: Negative Depression Screening Done: Yes 14509 - PHQ-9 Billing: Yes Source: Developed by Drs. Alfredo Barrera, Gertrudis Arias, Perry Castle and colleagues, with an educational kelli from [employer]. Thrive Questionnaire Date Thrive assessed: 06/22/25 I am a: Patient What is your living situation today?: I have a steady place to live Within the past 12 months, did the food you bought not last and you didn't have the money to get more?: Never true Within the past 12 months, did you worry whether your food would run out before you got money to buy more?: Never true Do you have trouble paying for medicines?: No Do you have trouble getting transportation to medical appointments?: No Do you have trouble paying your heating and electricity bill?: No Do you have trouble taking care of your child, family member or friend?: No Do you have trouble with day-to-day activities such as bathing, preparing meals, shopping, managing finances, etc.?: No Are you currently unemployed and looking for a job?: No Are you interested in more education?: No Please select the resources that you would like help with: None Currently or been in a relationship where the following occur: No concerns reported THRIVE Score: 0 AUDIT C Alcohol Use Questionnaire (AUDIT-C) 1. How often do you have a drink containing alcohol?: Monthly or less 2. How many drinks containing alcohol do you have on a typical day when you are drinking?: 1 or 2 3. How often do you have six or more drinks on one occasion?: Monthly Total Score: 3 RASHAD-7 AMB Questionnaire RASHAD-7 Date RASHAD - 7 assessed: 06/22/25 Feeling nervous, anxious, or on edge: 0 = Not at all Not being able to stop or control worryin = Not at all Worrying too much about different things: 0 = Not at all Trouble relaxin = Not at all Being so restless that it is hard to sit still: 0 = Not at all Becoming easily annoyed or irritable: 0 = Not at all Feeling afraid as if something awful might happen: 0 = Not at all Total RASHAD-7 score (0-4 normal; 5-9 mild; 10-14 moderate; 15-21 severe): 0 Source: Developed by Drs. Alfredo Barrera, Gertrudis Arias, Perry Castle and colleagues, with an educational kelli from [employer]. RASHAD-7 Assessment Billing RASHAD-7 Assessment Tool: RASHAD-7 Assessment 95254 Review of Systems Const Denies chills, Denies fatigue, Denies fever(s), Denies headache(s) and Denies weakness ENT Denies dizziness and Denies headache(s) Card Denies chest pain, Denies lightheadedness, Denies dyspnea and Denies other (Palpitations) Resp Denies cough, Denies dyspnea, Denies wheezing and Denies other ( shortness of breath) Musc Denies numbness and Denies tingling Neuro Denies dizziness, Denies headache(s), Denies numbness, Denies tingling, Denies paresthesias and Denies weakness Psych Denies anxiety and Denies depression Endo Denies fatigue Aller/Immun Denies wheezing Physical exam (Primary Care) Vital Signs: Last Vital Signs Temp 97.9 F 06/22/25 14:54 Pulse 81 06/22/25 14:54 Resp 17 06/22/25 14:54 BP 120/88 06/22/25 14:54 Pulse Ox 96 06/22/25 14:54 Oxygen Delivery Method Room Air 06/22/25 14:54 BMI result Body Mass Index 36.5 Tobacco/Smoking Status: Tobacco use Status Tobacco use date assessed 06/22/25 06/22/25 14:57 Patient Tobacco Use Status Current everyday Tobacco 06/22/25 14:54 Tobacco use type Cigarette 06/22/25 14:54 e-Cigarette/Vaping Use Never Used 06/22/25 14:57 PHQ-9: PHQ-9 Score PHQ-9: Total score 2 06/22/25 15:46 Depression Screening Interpretation: Negative Thrive Assessment: Date of Thrive Assessment Date Thrive assessed 06/22/25 06/22/25 14:50 Currently or been in a relationship where the following occur: No concerns reported Const General: no acute distress and well developed Nutritional Appearance: well nourished Orientation/consciousness: patient oriented x3 HENMT Head: Yes normocephalic and Yes atraumatic Eyes General: appearance normal, both eyes and all related structures Pupils: Equal, round and reactive pupils present EOM: EOMs intact bilaterally Resp Effort & Inspection: normal respiratory effort Auscultation: clear to auscultation bilaterally Cardio Rate: regular rate Rhythm: regular rhythm Heart sounds: S1 normal heart sound present, S2 normal heart sound present, no gallops, no murmurs and no rubs Neuro General: patient oriented x3 and gait normal Cranial nerves: Yes Equal, round and reactive pupils present Psych Affect: normal affect Coding Level of Care Code New Pt Level 4 (78156) Diagnoses Elevated partial thromboplastin time (PTT) R79.1 Chest pain R07.9 Chest pain type: unspecified Smoker F17.200 Laboratory exam ordered as part of routine general medical examination Z00.00 Alcohol use F10.90 Additional Codes RASHAD-7 Assessment Billing - RASHAD-7 Assessment Tool: RASHAD-7 Assessment 56200 ([id number]) PHQ-9 - 27057 - PHQ-9 Billing: Yes ([id number]) Assessment & Plan Assessment & Plan (1) Elevated partial thromboplastin time (PTT): Code(s): R79.1 - Abnormal coagulation profile Category: Medical Plan: Will recheck labs (2) Chest pain: Code(s): R07.9 - Chest pain, unspecified Category: Medical Qualifiers: Chest pain type: unspecified Qualified Code(s): R07.9 - Chest pain, unspecified Plan: Patient notes intermittent chest pain. No pain today. EKG: Normal sinus rhythm, normal axis, no hypertrophy, nonspecific T-wave abnormality. Otherwise unremarkable. Check stress test (3) Smoker: Code(s): F17.200 - Nicotine dependence, unspecified, uncomplicated Category: Social Hx Plan: Advised weaning and cessation. Patient is interested in quitting. He would like to try nicotine patch - ordered (4) Laboratory exam ordered as part of routine general medical examination: Code(s): Z00.00 - Encounter for general adult medical examination without abnormal findings Category: Medical Plan: Check labs (5) Alcohol use: Code(s): F10.90 - Alcohol use, unspecified, uncomplicated Category: Social Hx Plan We also discussed patient is alcohol consumption. Patient drinks a 12 pack beer up to once a week. Recommended he wean this down and drink only on moderation. Orders: Orders Complete Blood Count Auto Diff Today Z00.00 - Encounter for general adult medical examination without abnormal findings Lipid Panel Today Z00.00 - Encounter for general adult medical examination without abnormal findings UA CC w/rflx Micro + Cult Today Z00.00 - Encounter for general adult medical examination without abnormal findings Partial Thromboplastin Time Today R79.1 - Abnormal coagulation profile Hemoglobin A1c Today R73.01 - Impaired fasting glucose CA stress test Today R07.9 - Chest pain, unspecified Comprehensive [place]. Panel Fast Today Z00.00 - Encounter for general adult medical examination without abnormal findings Microalbumin, Random (w Creat) Today I10 - Essential (primary) hypertension Prostate Specific Antigen Scr Today Z12.5 - Encounter for screening for malignant neoplasm of prostate TSH reflex Free T4 Today Z00.00 - Encounter for general adult medical examination without abnormal findings Prothrombin Time INR Today R79.1 - Abnormal coagulation profile Medications: New nicotine (Nicoderm CQ) 1 patch transdermal DAILY 28 ea 1RF 28 days
--- OUTSIDE RECORDS SUMMARY | 2025-06-22 14:53 | XMS_ITS | Patient Health Record ---
Author Organization [facility] Address [address] [place] [address] Care Team Providers Care Electric Sign Assembler Name Role Phone Herminia (RETIRED) Giuseppe FITZPATRICK Primary Care Provide r Unavailable Alfredo Anderson Unavailable [phone] Allergies No Known Allergies Reason For Referral No Information Immunizations Vaccine Route Administration Date Status Comme nts Influenza Unknown 09/19/2020 Administered Social History Tobacco Use: Social History Observation Description Date Details (start date - stop date) Current Smoker NA - NA Tobacco Use/Smoking Question Answer Notes Patient is a current smoker How often do you smoke cigarettes? every day How many cigarettes a day do you smoke? 6-10 How soon after you wake up d o you smoke your first cigarette? 6-30 minutes Are you interested in quitting? Thinking about q uitting Alcohol Screen Question Answer Notes Did you have a drink contain ing alcohol in the past year? Yes How often did you have a dri nk containing alcohol in the past year? 2 to 4 times a month (2 points) How many drinks did you have on a typical day when you were drinking in the past year? 10 or more drinks (4 points) How often did you have 6 or more drinks on one occasion in the past year? Monthly (2 points) Points 8 Interpretation Positive Section Notes: Smoker 1/2 ppd; 12 beers kira ry Friday night Problems Problem Type SNOMED Code ICD Code Onset Dates Problem Status W/U Status Risk Notes Problem 0777163 Diverticulitis o f large intestine without perforation or abscess without bleeding (K57.32) Active confirmed Problem [id number] Abnormal CT scan , colon (R93.3) Active confirmed Problem Diverticulosis of colon (108096787) Diverticulosis of colon (K57.30) Active confirmed Plan Of Treatment Future Test Test Name Order Date COLONOSCOPY 09/19/2021 Insurance Providers Payer Name Payer Address Payer Phone Subscriber Number Group Number Insured Name Patient Relationship to Insured Coverage Start Date Coverage End Date [facility] [address] [place] [phone] [id number] RENNY PERDOMO Self - patient is the insured Medical (General) History Medical History History ICD Code Denies NE,DM,CVA,Lung disease,renal dise ase Sigmoid Diverticulitis 08/29 20 and 05/[address] scan-treated with outpatient antibiotics in the [facility]. He had an episode of some left sided abdominal pain in August of 2021 treated with antibiotics with resolution, but a CT scan was not obtained. Surgical History Surgery Date(Month/Year) Left carpal tunnel Appy
--- OUTSIDE RECORDS SUMMARY | 2025-06-22 14:53 | XMS_ITS ---
Author Name [facility] Organization Unknown Care Team Organization Name Specialty Phone Email Start Date End Da te [facility] Termed, PROVIDER Primary Care 09/17/202206/10
[2025-06-22 14:54] VITALS: BP 120/88; PULSE 81; RESP 17; TEMP 36.6; O2SAT 96; BMI 36.5
== END 2025-06-22 16:45 | disposition home or self-care (01) ==
LOC: HO.HMCFM 14:47
PROVIDERS: PCP Family Medicine; Visit Provider Family Medicine
DX: R79.1 Abnormal coagulation profile (principal); R07.9 Chest pain, unspecified; F17.200 Nicotine dependence, unspecified, uncomplicated; Z00.00 Encounter for general adult medical examination without abnormal findings; F10.90 Alcohol use, unspecified, uncomplicated

== ENCOUNTER → 2025-06-22 14:46 | Outpatient (BNVA) | payer OTHER, SELFPAY | PROVIDERS: PCP Family Medicine; Visit Provider Family Medicine | DX: Z00.00 Encounter for general adult medical examination without abnormal findings (principal); R79.1 Abnormal coagulation profile; R07.9 Chest pain, unspecified; F10.90 Alcohol use, unspecified, uncomplicated; F17.210 Nicotine dependence, cigarettes, uncomplicated | CPT/HCPCS: 96127 ==

== ENCOUNTER 2025-07-25 13:10 | Outpatient (REF) | payer OTHER, SELFPAY ==
[2025-07-25 17:42] LABS: MANUAL DIFF FLAG NO
[2025-07-25 17:50] LABS: Hematocrit 43.9 % (42.0-52.0); Hemoglobin 16.4 g/dl (14.0-18.0); Imm Gran Abs Auto 0.03 X10*3/uL (0.00-0.03); Imm Gran Pct Auto 0.4 % (0.0-0.4); Lymphocytes Absolute Auto 2.6 X10*3/uL (1.2-4.9); Mean Corpuscular HGB Conc 37.4 g/dl (31.0-36.0); Mean Corpuscular Hemoglobin 33.3 pg (27.0-33.0); Mean Corpuscular Volume 89.2 fL (80.0-98.0); NRBC Abs Auto 0.000 X10*3/uL (0.0-0.012); NRBC Pct Auto 0.0 /100WBC (0.0-0.2); Platelet Count 156 X10*3/uL (160-400); Red Blood Count 4.92 X10*6/uL (4.60-5.80); White Blood Count 7.3 X10*3/uL (4.8-10.8)
[2025-07-25 17:53] LABS: Appearance Urine Clear; Glucose Urine UA >=1000 mg/dL (Negative); PH 5.0 (5.0-9.0); Specific Gravity - Urine >= 1.030 (1.005-1.025); UMIC TRIGGER UACC YES
[2025-07-25 18:01] LABS: INTERNATIONAL NORM RATIO 1.0 (0.9-1.1); Prothrombin Time 11.9 SEC (10.9-12.4)
[2025-07-25 18:16] LABS: Partial Thromboplastin Time 62.3 SEC (26.7-34.1)
[2025-07-25 18:31] LABS: Microalbum/Creatinine Ratio Ur 33.4 ug/mg cr (<30)
[2025-07-25 18:44] LABS: Alanine Aminotransferase 161 U/L (0-40); Albumin Level 4.9 g/dL (3.5-5.0); Alkaline Phosphatase 113 U/L (39-117); Anion Gap 14 (12-20); Aspartate Amino Transferase 76 U/L (5-37); Blood Urea Nitrogen 15 mg/dL (9-16); Calcium 9.6 mg/dL (8.4-10.2); Carbon Dioxide 23 mmol/L (22-29); Chloride 100 mmol/L (96-108); Cholesterol 262 mg/dL (<200); Estimated Glomerular Filt Rate > 60; HDL Cholesterol 34 mg/dL (>40); Potassium 4.2 mmol/L (3.3-5.1); Sodium 133 mmol/L (135-145); Total Protein 7.9 g/dL (6.5-8.0); Triglycerides 591 mg/dL (<150)
== END 2025-07-25 13:11 | disposition home or self-care (01) ==
LOC: HO.WFDLDS 13:10
PROVIDERS: PCP Family Medicine; Visit Provider Nurse Practitioner Family
DX: Z00.00 Encounter for general adult medical examination without abnormal findings (principal); Z12.5 Encounter for screening for malignant neoplasm of prostate; I10 Essential (primary) hypertension; R79.1 Abnormal coagulation profile; E11.9 Type 2 diabetes mellitus without complications; R68.2 Dry mouth, unspecified; R35.89 Other polyuria; R63.1 Polydipsia; R63.2 Polyphagia; R53.83 Other fatigue
CPT/HCPCS: 36415; 80053; 80061; 81001; 82043; 82570; 83036; 84153; 84443; 85025; 85610; 85730

== ENCOUNTER 2025-07-25 13:10 | Outpatient (AMB) | payer OTHER, SELFPAY ==
--- NOTE | 2025-07-25 13:31 | A.OFFPC_ITS ---
Vital Signs 07/25/25 13:37 Height 5 ft 7 in Weight 223 lb 8 oz BMI 35.0 BP 141/90 H Blood Pressure Location Rt brachial Position Sitting Respiration 16 Pulse 63 Pulse Source Pulse Oximeter Temp 98.3 F Temp Source Oral Pulse Oximetry (%) 98 Oxygen Delivery Method Room Air Intake Visit Reasons: Dry mouth,urinating a lot,blurry vision Intake Note: patient here c/o Dry mouth, urinating a lot and blurry vision and tirednesss Quantitative Research Analyst Required: No Accompanied by: Spouse Allergies No Known Allergies (No Known Allergies*) Allergy (Verified 07/25/25 14:09) Medication List - Last Reconciled 07/25/25 by Renny Arellano CNP nicotine (Nicoderm CQ) 1 patch transdermal DAILY 28 days Tobacco use date assessed: 07/25/25 Dental Screening Dental Screen Date: 07/25/25 Did you have a dental visit in the last 12 months?: Yes Did you have a dental problem in the last 6 months where you did not have access to dental care?: No Was dental information given to patient?: Patient has dentist HPI HPI Comments History of Present Illness Details 45-year-old male, accompanied by his gir lfriend presents with complaints of persistent dry mouth, frequent urination, blurry vision, and fatigue. His symptoms have been ongoing for the past one week. He also endorses polydipsia and polyphagia. He admits to eating significant amount of carbs and fast foods. He does not exercise. He denies headaches. He notes that he had an eye exam with [facility] earlier this year. Reports family history of HTN and DM. [facility], [facility] Medical History Diverticulitis No known health problems Surgical History Hx of appendectomy Family History (Updated 06/22/25 @ 15:00 by Tonie Burnette MA) Father Asthma Sister Diabetes Social History (Updated 06/22/25 @ 14:54 by Tonie Burnette MA) Housing: House Alcohol intake: current Alcohol intake frequency: holidays/special occasions only Patient Tobacco Use Status: Current everyday Tobacco user Tobacco use type: Cigarette Cigarette Packs Per Day: 1 Cigarettes Per Day: 20.0 Years Smoked: 25 e-Cigarette/Vaping Use: Never Used Second Hand Smoke Exposure: Yes service: No Current occupational status: employed Current occupation: [employer] Current occupational exposures/hazards: Yes Cognitive needs: No Hearing needs: No Vision needs: No Questionnaire Thrive Questionnaire Date Thrive assessed: 06/15/25 I am a: Patient What is your living situation today?: I have a steady place to live Within the past 12 months, did the food you bought not last and you didn't have the money to get more?: Never true Within the past 12 months, did you worry whether your food would run out before you got money to buy more?: Never true Do you have trouble paying for medicines?: No Do you have trouble getting transportation to medical appointments?: No Do you have trouble paying your heating and electricity bill?: No Do you have trouble taking care of your child, family member or friend?: No Do you have trouble with day-to-day activities such as bathing, preparing meals, shopping, managing finances, etc.?: No Are you currently unemployed and looking for a job?: No Are you interested in more education?: No Please select the resources that you would like help with: None Currently or been in a relationship where the following occur: No concerns reported THRIVE Score: 0 RASHAD-7 AMB Questionnaire RASHAD-7 Date RASHAD - 7 assessed: 06/22/25 Source: Developed by Drs. Alfredo Barrera, Gertrudis Arias, Perry Castle and colleagues, with an educational kelli from [employer]. Review of Systems Const Details: Const Denies chills, Reports fatigue, Denies fever(s), Denies headache(s) and Denies weakness ENT Denies dizziness and Denies headache(s) Card Denies chest pain, Denies lightheadedness, Denies dyspnea and Denies other (Palpitations) Resp Denies cough, Denies dyspnea, Denies wheezing and Denies other (shortness of breath) GI Denies abdominal pain, Denies melena, Denies hematochezia, Denies change in bowel habits, Denies dyspepsia and Denies nausea Denies hematuria and Denies dysuria Musc Denies abnormal gait, Denies myalgias, Denies arthralgias, Denies numbness and Denies tingling Skin/Breast Denies rash, Denies unusual bruising and Denies wounds Neuro Denies abnormal gait, Denies dizziness, Denies headache(s), Denies memory loss, Denies numbness, Denies Sensory deficit (Neuro), Denies tingling and Denies weakness Psych Denies anxiety, Denies depression, Denies memory loss Endo Denies cold intolerance, Reports fatigue, Denies heat intolerance, Denies polydipsia and Denies polyuria Aller/Immun Denies wheezing Physical exam (Primary Care) Vital Signs: Last Vital Signs Temp 98.3 F 07/25/25 13:37 Pulse 63 07/25/25 13:37 Resp 16 07/25/25 13:37 BP 141/90 H 07/25/25 13:37 Pulse Ox 98 07/25/25 13:37 Oxygen Delivery Method Room Air 07/25/25 13:37 BMI result Body Mass Index 35.0 Tobacco/Smoking Status: Tobacco use Status Tobacco use date assessed 07/25/25 07/25/25 13:41 Patient Tobacco Use Status Current everyday Tobacco 07/25/25 13:35 Tobacco use type Cigarette 07/25/25 13:35 e-Cigarette/Vaping Use Never Used 07/25/25 13:35 Thrive Assessment: Date of Thrive Assessment Date Thrive assessed 06/15/25 07/25/25 13:35 Currently or been in a relationship where the following occur: No concerns reported Const Other: General: no acute distress and well developed Nutritional Appearance: well nourished Orientation/consciousness: patient oriented x3 HENMT Head: Yes normocephalic and Yes atraumatic Eyes General: appearance normal, both eyes and all related structures Pupils: Equal, round and reactive pupils present EOM: EOMs intact bilaterally Resp Effort & Inspection: normal respiratory effort Auscultation: clear to auscultation bilaterally Cardio Rate: regular rate Rhythm: regular rhythm Heart sounds: S1 normal heart sound present, S2 normal heart sound present, no gallops, no murmurs and no rubs GI Palpation (GI): No Abdominal aortic bruit present, Soft to palpation, nontender, No hepatosplenomegaly present and No Rebound tenderness present Auscultation: normal bowel sounds General: Yes no CVA tenderness Back/Spine/Pelvis Back: no CVA tenderness Cervical Spine: cervical ROM normal and No Cervical spine tenderness Thoracic/Lumbar Spine: thoraco-lumbar ROM normal, No pain with thoraco-lumbar ROM, No thoracic spinal tenderness and No lumbar spinal tenderness Extrem General: Yes normal to inspection, No edema and No calf tenderness Skin General: warm and dry. Normal skin color. Normal skin turgor Neuro General: patient oriented x3, gait normal and no focal neuro deficit Cranial nerves: Yes Equal, round and reactive pupils present Cognition (Neuro): normal cognition Gait exam (Neuro): Normal gait present Sensory Exam: No Sensory deficit (Neuro) Psych Appearance: grossly normal Affect: normal affect Attitude: cooperative Thought process: Normal thought process present Results AMB Hemoglobin A1c AMB Hemoglobin A1c 11.5 % Last Edit by Yanelis Gilmore MA on 07/25/25 14:22 Coding Level of Care Code Est Pt Level 4 (09970) Complex EM visit Add On G2211 Diagnoses Diabetes E11.9 Hypertension I10 Dry mouth R68.2 Polyuria R35.89 Polydipsia R63.1 Polyphagia R63.2 Fatigue R53.83 Assessment & Plan Assessment & Plan (1) Diabetes: Code(s): E11.9 - Type 2 diabetes mellitus without complications Category: Medical Plan: A1c today is 11.5%, goal is less than 7.0%. Resting blood pressure is 141/90, goal is less than 130/80. His symptoms are likely attributed to diabetes and hypertension. Metformin 500 mg twice daily and lisinopril 10 mg daily ordered; advised to take as prescribed. Instructed on the risks, benefits, and potential adverse reactions of the medication. ADA and low-sodium diet and routine exercise encouraged. Will request ophthalmology record from [facility]. Diabetic supplies ordered. Advised to monitor blood glucose 3 times daily (before breakfast, at noon and supper), record readings, and bring to next appointment. Follow-up with PCP in 1 month. Return sooner with symptoms or concerns. Verbalized understanding and agreed with the plan. (2) Hypertension: Code(s): I10 - Essential (primary) hypertension Category: Medical Plan: Plan as above. (3) Dry mouth: Code(s): R68.2 - Dry mouth, unspecified Category: Medical Plan: Plan as above. (4) Polyuria: Code(s): R35.89 - Other polyuria Category: Medical Plan: Plan as above. (5) Polydipsia: Code(s): R63.1 - Polydipsia Category: Medical Plan: Plan as above. (6) Polyphagia: Code(s): R63.2 - Polyphagia Category: Medical Plan: Plan as above. (7) Fatigue: Code(s): R53.83 - Other fatigue Category: Medical Plan: Plan as above. Orders: Orders AMB Hemoglobin A1c Today Z13.9 - Encounter for screening, unspecified Medications: New lancets (FreeStyle Lancets) POC testing TID 100 ea 3RF E11.9 - Type 2 diabetes mellitus without complications blood-glucose meter (FreeStyle Lite Meter kit) POC testing TID 1 ea 0RF E11.9 - Type 2 diabetes mellitus without complications metformin 500 mg PO BIDWMEAL 60 tabs 3RF 30 days lisinopril 10 mg PO DAILY 30 tabs 3RF 30 days blood sugar diagnostic (FreeStyle Lite Strips) POC testing TID 100 ea 0RF E11.9 - Type 2 diabetes mellitus without complications
[2025-07-25 13:37] VITALS: BP 141/90; PULSE 63; RESP 16; TEMP 36.8; O2SAT 98; BMI 35.0
--- OUTSIDE RECORDS SUMMARY | 2025-07-25 18:17 | XMS_ITS | Patient Health Record ---
Author Organization [facility] Address [address] [place] [address] Care Team Providers Care Green Marketing Analyst Name Role Phone Herminia (RETIRED) Giuseppe FITZPATRICK Primary Care Provide r Unavailable Alfredo Anderson Unavailable [phone] Allergies No Known Allergies Reason For Referral [...] Problem Status W/U Status Risk Notes Problem 0032219 Diverticulitis o f large intestine without perforation or abscess without bleeding (K57.32) Active confirmed Problem [id number] Abnormal CT scan , colon (R93.3) Active confirmed Problem Diverticulosis of colon (732953928) Diverticulosis of colon (K57.30) Active confirmed Plan Of Treatment Future Test Test Name Order Date COLONOSCOPY 09/19/2021 Insurance Providers Payer Name Payer Address Payer Phone Subscriber Number Group Number Insured Name Patient Relationship to Insured Coverage Start Date Coverage End Date [facility] [address] [place] [phone] [id number] RENNY PERDOMO Self - patient is the insured Medical (General) History Medical History History ICD Code Denies ME,DM,CVA,Lung disease,renal dise ase Sigmoid Diverticulitis 08/29 20 and 05/[address] scan-treated with outpatient antibiotics in the [facility] ER. He had an episode of some left sided abdominal pain in August of 2021 treated with antibiotics with resolution, but a CT scan was not obtained. Surgical History Surgery Date(Month/Year) Left carpal tunnel Appy
== END 2025-07-25 14:28 | disposition home or self-care (01) ==
LOC: HO.HMCFM 13:11
PROVIDERS: PCP Family Medicine; Visit Provider Nurse Practitioner Family
DX: E11.9 Type 2 diabetes mellitus without complications (principal); I10 Essential (primary) hypertension; R68.2 Dry mouth, unspecified; R35.89 Other polyuria; R63.1 Polydipsia; R63.2 Polyphagia; R53.83 Other fatigue; Z13.9 Encounter for screening, unspecified

== ENCOUNTER 2025-08-01 08:31 | Outpatient (REF) | payer OTHER, SELFPAY ==
[2025-08-01 11:51] LABS: Alanine Aminotransferase 145 U/L (0-40); Albumin Level 4.7 g/dL (3.5-5.0); Alkaline Phosphatase 92 U/L (39-117); Anion Gap 11 (12-20); Aspartate Amino Transferase 56 U/L (5-37); Blood Urea Nitrogen 19 mg/dL (9-16); Calcium 9.8 mg/dL (8.4-10.2); Carbon Dioxide 26 mmol/L (22-29); Chloride 102 mmol/L (96-108); Cholesterol 194 mg/dL (<200); Estimated Glomerular Filt Rate > 60; HDL Cholesterol 41 mg/dL (>40); Potassium 4.9 mmol/L (3.3-5.1); Sodium 134 mmol/L (135-145); Total Protein 7.3 g/dL (6.5-8.0); Triglycerides 143 mg/dL (<150)
[2025-08-01 14:43] LABS: Appearance Urine Clear; Glucose Urine UA >=1000 mg/dL (Negative); PH 5.0 (5.0-9.0); Specific Gravity - Urine 1.020 (1.005-1.025); UMIC TRIGGER UACC YES
[2025-08-01 15:36] LABS: Microalbum/Creatinine Ratio Ur 9.9 ug/mg cr (<30)
== END 2025-08-01 08:32 | disposition home or self-care (01) ==
LOC: HO.WFDLDS 08:31
PROVIDERS: PCP Family Medicine; Visit Provider Family Medicine
DX: Z00.00 Encounter for general adult medical examination without abnormal findings (principal); E11.9 Type 2 diabetes mellitus without complications; I10 Essential (primary) hypertension; E78.2 Mixed hyperlipidemia; Z79.4 Long term (current) use of insulin; Z79.84 Long term (current) use of oral hypoglycemic drugs; Z79.899 Other long term (current) drug therapy
CPT/HCPCS: 36415; 80053; 80061; 81001; 82043; 82570

== ENCOUNTER 2025-08-01 08:31 | Outpatient (AMB) | payer OTHER, SELFPAY ==
--- NOTE | 2025-08-01 08:36 | A.OFFPC_ITS ---
Vital Signs 08/01/25 08:39 Height 5 ft 7 in Weight 224 lb 2 oz BMI 35.1 BP 136/84 Blood Pressure Location Rt brachial Position Sitting Respiration 14 Pulse 70 Pulse Source Pulse Oximeter Pulse Oximetry (%) 98 Oxygen Delivery Method Room Air Intake Visit Reasons: 1 wk f/u for diabetes Intake Note: Diabetes follow up Sampler Pickup Required: No Allergies No Known Allergies (No Known Allergies*) Allergy (Verified 08/01/25 08:38) Medication List - Last Reconciled 08/01/25 by Kirk Salinas MD blood sugar diagnostic (FreeStyle Lite Strips) POC testing TID blood-glucose meter (FreeStyle Lite Meter kit) POC testing TID glucose (Dex4 Glucose) 16 grams (4 x 4 gram) PO Q15M PRN insulin glargine (Lantus Solostar U-100 Insulin) 10 units (0.1 mL) subcut QPM lancets (FreeStyle Lancets) POC testing TID lisinopril 10 mg PO DAILY 30 days metformin 500 mg PO BIDWMEAL 30 days nicotine (Nicoderm CQ) 1 patch transdermal DAILY 28 days pen needle, diabetic Use daily As directed Tobacco use date assessed: 08/01/25 Dental Screening Dental Screen Date: 07/25/25 HPI 1 wk f/u for diabetes 2 HPI Details 45 y/o male presents to f/u diabetes. Last saw MT last week. A1c 11.5%. Had been started on metformin 500mg b.i.d., lisinopril. Also on Lantus 10 units. Notes he still reports polydipsia/polyuria but has been improving. Ongoing numbness/tingling of his fingers/toes. Morning blood sugars are still in the mid to high 200s. BP today 136/84, 70p. HPI Comments History of Present Illness Details Documentation assistance for Kirk Salinas MD, was provided by Luis Eduardo Barnes,? Talent Consultant on 08/01/2025 at 8:50 AM EST. I, Dr. Salinas, have read, observed, and verified documentation. [facility] Medical History Diverticulitis No known health problems Surgical History Hx of appendectomy Family History Father Asthma Sister Diabetes Social History Housing: House Alcohol intake: current Alcohol intake frequency: holidays/special occasions only Patient Tobacco Use Status: Current everyday Tobacco user Tobacco use type: Cigarette Cigarette Packs Per Day: 1 Cigarettes Per Day: 20.0 Years Smoked: 25 Packs Per Year: 25 Packs per year/per ci.00 e-Cigarette/Vaping Use: Never Used Second Hand Smoke Exposure: Yes service: No Current occupational status: employed Current occupation: [employer] Current occupational exposures/hazards: Yes Cognitive needs: No Hearing needs: No Vision needs: No Questionnaire Thrive Questionnaire Date Thrive assessed: 06/15/25 I am a: Patient What is your living situation today?: I have a steady place to live Within the past 12 months, did the food you bought not last and you didn't have the money to get more?: Never true Within the past 12 months, did you worry whether your food would run out before you got money to buy more?: Never true Do you have trouble paying for medicines?: No Do you have trouble getting transportation to medical appointments?: No Do you have trouble paying your heating and electricity bill?: No Do you have trouble taking care of your child, family member or friend?: No Do you have trouble with day-to-day activities such as bathing, preparing meals, shopping, managing finances, etc.?: No Are you currently unemployed and looking for a job?: No Are you interested in more education?: No Please select the resources that you would like help with: None Currently or been in a relationship where the following occur: No concerns reported THRIVE Score: 0 RASHAD-7 AMB Questionnaire RASHAD-7 Date RASHAD - 7 assessed: 06/22/25 Source: Developed by Drs. Alfredo Barrera, Gertrudis Arias, Perry Castle and colleagues, with an educational kelli from [employer]. Review of Systems Const Denies chills, Denies fatigue, Denies fever(s), Denies headache(s) and Denies weakness ENT Denies dizziness and Denies headache(s) Card Denies dyspnea Resp Denies cough, Denies dyspnea, Denies wheezing and Denies other (shortness of breath) Musc Denies numbness and Denies tingling Neuro Denies dizziness, Denies headache(s), Denies numbness, Denies tingling and Denies weakness Psych Denies anxiety and Denies depression Endo Denies fatigue Aller/Immun Denies wheezing Physical exam (Primary Care) Vital Signs: Last Vital Signs Pulse 70 08/01/25 08:39 Resp 14 08/01/25 08:39 BP 136/84 08/01/25 08:39 Pulse Ox 98 08/01/25 08:39 Oxygen Delivery Method Room Air 08/01/25 08:39 BMI result Body Mass Index 35.1 Tobacco/Smoking Status: Tobacco use Status Tobacco use date assessed 08/01/25 08/01/25 08:43 Patient Tobacco Use Status Current everyday Tobacco 08/01/25 08:43 Tobacco use type Cigarette 08/01/25 08:43 e-Cigarette/Vaping Use Never Used 08/01/25 08:43 Thrive Assessment: Date of Thrive Assessment Date Thrive assessed 06/15/25 08/01/25 08:43 Currently or been in a relationship where the following occur: No concerns repor indu Const General: well developed; No acute distress Nutritional Appearance: well nourished Orientation/consciousness: patient oriented x3 [facility] Head: Yes normocephalic and Yes atraumatic Eyes General: appearance normal, both eyes and all related structures Pupils: Equal, round and reactive pupils present EOM: EOMs intact bilaterally Resp Effort & Inspection: normal respiratory effort Auscultation: clear to auscultation bilaterally Cardio Rate: regular rate Rhythm: regular rhythm Heart sounds: S1 normal heart sound present, S2 normal heart sound present, no gallops, no murmurs and no rubs Neuro General: patient oriented x3 and gait normal Cranial nerves: Yes Equal, round and reactive pupils present Psych Affect: normal affect Coding Level of Care Code Est Pt Level 4 (89425) Diagnoses Diabetes E11.9 Hypertension I10 Mixed hyperlipidemia E78.2 Assessment & Plan Assessment & Plan (1) Diabetes: Code(s): E11.9 - Type 2 diabetes mellitus without complications Category: Medical Plan: A1c was very high last week and at reason appointment. He was diagnosed with diabetes and started on Lantus 10 units daily as well as metformin 500 mg b.i.d. His morning blood sugars are still in the mid to high 200s He will continue metformin and increase Lantus to 14 units daily Referring him to the nurse navigator for diabetic teaching Will refer him to Ophthalmology for a diabetic retinal exam Advised foot care (2) Hypertension: Code(s): I10 - Essential (primary) hypertension Category: Medical Plan: Blood pressure now in controlled range on lisinopril. Goal is less than 140/90 Continue current medication Work at a diet low in salt/sodium Encouraged exercise and weight loss Will continue to monitor (3) Mixed hyperlipidemia: Code(s): E78.2 - Mixed hyperlipidemia Category: Medical Plan: Lipids are quite high including triglycerides-likely due to high blood sugar and he is working on lowering blood sugars. Will repeat lipids prior to his next visit and address at that time Orders: Orders Comprehensive [place]. Panel Fast Today E11.9 - Type 2 diabetes mellitus without complications, Z00.00 - Encounter for general adult medical examination without abnormal findings Lipid Panel Today E11.9 - Type 2 diabetes mellitus without complications, Z00.00 - Encounter for general adult medical examination without abnormal findings Microalbumin, Random (w Creat) Today E11.9 - Type 2 diabetes mellitus without complications, I10 - Essential (primary) hypertension
[2025-08-01 08:39] VITALS: BP 136/84; PULSE 70; RESP 14; O2SAT 98; BMI 35.1
--- OUTSIDE RECORDS SUMMARY | 2025-08-01 09:49 | XMS_ITS | Patient Health Record ---
Author Organization [facility] Address [address] [place] [address] Care Team Providers Care Powdered Metal Supervisor Name Role Phone Herminia (RETIRED) Giuseppe FITZPATRICK Primary Care Provide r Unavailable Alfredo Anderson Unavailable [phone] Allergies No Known Allergies Reason For Referral [...] Problem Status W/U Status Risk Notes Problem [id number] Diverticulitis o f large intestine without perforation or abscess without bleeding (K57.32) Active confirmed Problem [id number] Abnormal CT scan , colon (R93.3) Active confirmed Problem Diverticulosis of colon (976665023) Diverticulosis of colon (K57.30) Active confirmed Plan Of Treatment Future Test Test Name Order Date COLONOSCOPY 09/19/2021 Insurance Providers Payer Name Payer Address Payer Phone Subscriber Number Group Number Insured Name Patient Relationship to Insured Coverage Start Date Coverage End Date [facility] [address] [place] [phone] [id number] RENNY PERDOMO Self - patient is the insured Medical (General) History Medical History History ICD Code Denies [place],DM,CVA,Lung disease,renal dise ase Sigmoid Diverticulitis 08/29 20 and 05/[address] scan-treated with outpatient antibiotics in the [facility]. He had an episode of some left sided abdominal pain in August of 2021 treated with antibiotics with resolution, but a CT scan was not obtained. Surgical History Surgery Date(Month/Year) Left carpal tunnel Appy
== END 2025-08-01 09:04 | disposition home or self-care (01) ==
LOC: HO.HMCFM 08:31
PROVIDERS: PCP Family Medicine; Visit Provider Family Medicine
DX: E11.9 Type 2 diabetes mellitus without complications (principal); I10 Essential (primary) hypertension; E78.2 Mixed hyperlipidemia

== ENCOUNTER 2025-10-13 14:06 | Outpatient (AMB) | payer OTHER, SELFPAY ==
--- NOTE | 2025-10-13 14:11 | A.OFFPC_ITS ---
Vital Signs 10/13/25 14:17 Height 5 ft 7 in Weight 222 lb BMI 34.8 BP 103/55 L Blood Pressure Location Lt brachial Position Sitting Respiration 16 Pulse 69 Pulse Source Pulse Oximeter Temp 97.9 F Temp Source Oral Pulse Oximetry (%) 96 Oxygen Delivery Method Room Air Intake Visit Reasons: CPE with f/u labs and health maint. 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 Allergies No Known Allergies (No Known Allergies*) Allergy (Verified 10/13/25 14:16) Medication List - Last Reconciled 10/13/25 by Kirk Salinas MD blood sugar diagnostic (FreeStyle Lite Strips) POC testing TID blood-glucose meter (FreeStyle Lite Meter kit) POC testing TID glucose (Dex4 Glucose) 16 grams (4 x 4 gram) PO Q15M PRN insulin glargine (Lantus Solostar U-100 Insulin) 10 units (0.1 mL) subcut QPM lancets (FreeStyle Lancets) POC testing TID lisinopril 10 mg PO DAILY 30 days metformin 500 mg PO BIDWMEAL 30 days nicotine (Nicoderm CQ) 1 patch transdermal DAILY 28 days pen needle, diabetic Use daily As directed Tobacco use date assessed: 10/13/25 Dental Screening Dental Screen Date: 10/13/25 Did you have a dental visit in the last 12 months?: Yes Did you have a dental problem in the last 6 months where you did not have access to dental care?: No Was dental information given to patient?: Patient has dentist HPI CPE with f/u labs and health maint. 30 mins HPI Details 45 y/o male presents for a CPE with f/u labs and health maint. Labs drawn 08/01/25. Reviewed labs with pt. Elevated liver enzymes - AST 56, ALT 145. Triglycerides 143. Improved from 591. TC 194. LDL 125. HDL 41. BP today 103/55, 69p. A1c today 5.8%. Reports he has recorded low blood sugars down to the 60s about three times. [facility] Medical History Diverticulitis No known health problems Surgical History Hx of appendectomy Family History Father Asthma Sister Diabetes Social History (Updated 10/13/25 @ 14:18 by SERGIO Hickman) Housing: House Alcohol intake: current Alcohol intake frequency: holidays/special occasions only Patient Tobacco Use Status: Current everyday Tobacco user Tobacco use type: Cigarette Cigarette Packs Per Day: 1 Cigarettes Per Day: 20.0 Years Smoked: 25 e-Cigarette/Vaping Use: Never Used Second Hand Smoke Exposure: Yes service: No Current occupational status: employed Current occupation: [employer] Current occupational exposures/hazards: Yes Cognitive needs: No Hearing needs: No Vision needs: No Questionnaire PHQ-9 Over the last 2 weeks, how often have you been bothered by any of the following problems? 1. Little interest or pleasure in doing things: not at all 2. Feeling down, depressed, or hopeless: not at all 3. Trouble falling or staying asleep, or sleeping too much: not at all 4. Feeling tired or having little energy: not at all 5. Poor appetite or overeating: not at all 6. Feeling bad about yourself - or that you are a failure or have let yourself or your family down: not at all 7. Trouble concentrating on things, such as reading the newspaper or watching television: not at all 8. Moving or speaking so slowly that other people could have noticed. Or the opposite - being so fidgety or restless that you have been moving around a lot more than usual: not at all 9. Thoughts that you would be better off or of hurting yourself in some way: not at all Total score: 0 Depression Screening Interpretation: Negative Depression Screening Done: Yes [id number] - PHQ-9 Billing: Yes Source: Developed by Drs. Alfredo Barrera, Gertrudis Arias, Perry Castle and colleagues, with an educational kelli from [employer]. Thrive Questionnaire Date Thrive assessed: 10/13/25 I am a: Patient What is your living situation today?: I have a steady place to live Within the past 12 months, did the food you bought not last and you didn't have the money to get more?: Never true Within the past 12 months, did you worry whether your food would run out before you got money to buy more?: Never true Do you have trouble paying for medicines?: No Do you have trouble getting transportation to medical appointments?: No Do you have trouble paying your heating and electricity bill?: No Do you have trouble taking care of your child, family member or friend?: No Do you have trouble with day-to-day activities such as bathing, preparing meals, shopping, managing finances, etc.?: No Are you currently unemployed and looking for a job?: No Are you interested in more education?: No Please select the resources that you would like help with: None Currently or been in a relationship where the following occur: No concerns reported THRIVE Score: 0 AUDIT C Alcohol Use Questionnaire (AUDIT-C) 1. How often do you have a drink containing alcohol?: Monthly or less 2. How many drinks containing alcohol do you have on a typical day when you are drinking?: 1 or 2 3. How often do you have six or more drinks on one occasion?: Monthly Total Score: 3 Score Reviewed/Action Taken: Yes RASHAD-7 AMB Questionnaire RASHAD-7 Date RASHAD - 7 assessed: 10/13/25 Feeling nervous, anxious, or on edge: 0 = Not at all Not being able to stop or control worryin = Not at all Worrying too much about different things: 0 = Not at all Trouble relaxin = Not at all Being so restless that it is hard to sit still: 0 = Not at all Becoming easily annoyed or irritable: 0 = Not at all Feeling afraid as if something awful might happen: 0 = Not at all Total RASHAD-7 score (0-4 normal; 5-9 mild; 10-14 moderate; 15-21 severe): 0 Source: Developed by Drs. Alfredo Barrera, Gertrudis Arias, Perry Castle and colleagues, with an educational kelli from [employer]. RASHAD-7 Assessment Billing RASHAD-7 Assessment Tool: RASHAD-7 Assessment 06578 Review of Systems Const Denies chills, Denies fatigue, Denies fever(s), Denies headache(s) and Denies weakness Eyes Denies change in vision ENT Denies dizziness, Denies headache(s), Denies hearing loss, Denies nasal congestion, Denies sinus pain, Denies sinus pressure and Denies sore throat Card Denies chest pain, Denies lightheadedness, Denies dyspnea and Denies other (palpitations) Resp Denies cough, Denies dyspnea and Denies wheezing GI Denies abdominal pain, Denies melena, Denies hematochezia, Denies change in bowel habits, Denies dyspepsia and Denies nausea Denies hematuria and Denies dysuria Musc Denies abnormal gait, Denies myalgias, Denies arthralgias, Denies numbness and Denies tingling Skin/Breast Denies rash, Denies unusual bruising and Denies wounds Neuro Denies abnormal gait, Denies dizziness, Denies headache(s), Denies memory loss, Denies numbness, Denies Sensory deficit (Neuro), Denies tingling and Denies weakness Psych Denies anxiety, Denies depression and Denies memory loss Endo Denies cold intolerance, Denies fatigue, Denies heat intolerance, Denies polydipsia and Denies polyuria Demarcus/Lymph Denies easy bleeding and Denies easy bruising Aller/Immun Denies wheezing Physical exam (Primary Care) Vital Signs: Last Vital Signs Temp 97.9 F 10/13/25 14:17 Pulse 69 10/13/25 14:17 Resp 16 10/13/25 14:17 BP 103/55 L 10/13/25 14:17 Pulse Ox 96 10/13/25 14:17 Oxygen Delivery Method Room Air 10/13/25 14:17 BMI result Body Mass Index 34.8 Tobacco/Smoking Status: Tobacco use Status Tobacco use date assessed 10/13/25 10/13/25 14:23 Patient Tobacco Use Status Current everyday Tobacco 10/13/25 14:18 Tobacco use type Cigarette 10/13/25 14:18 e-Cigarette/Vaping Use Never Used 10/13/25 14:18 PHQ-9: PHQ-9 Score PHQ-9: Total score 0 10/13/25 14:29 Depression Screening Interpretation: Negative Thrive Assessment: Date of Thrive Assessment Date Thrive assessed 10/13/25 10/13/25 14:29 Currently or been in a relationship where the following occur: No concerns reported Const General: no acute distress, well developed, alert and awake Nutritional Appearance: well nourished Orientation/consciousness: patient oriented x3 HENMT Head: Yes normocephalic and Yes atraumatic Ears: hearing grossly normal bilaterally and TM's normal bilaterally General nose exam: Normal external nose present and Normal nares present Mouth: Normal oral and palatal mucosa present and moist mucous membranes Teeth and gingiva: dentition normal Throat: Yes posterior oropharynx normal Eyes General: appearance normal, both eyes and all related structures Pupils: Equal, round and reactive pupils present and Pupil accommodation reflex normal EOM: EOMs intact bilaterally Neck Neck: Yes normal visual inspection, Yes no lymphadenopathy and Yes trachea midline Thyroid: Thyroid normal Carotids: no bruits Lymphatic: no lymphadenopathy noted Chest Chest palpation & inspection: normal inspection of the chest Resp Effort & Inspection: normal respiratory effort Auscultation: clear to auscultation bilaterally Cardio Rate: regular rate Rhythm: regular rhythm Heart sounds: S1 normal heart sound present, S2 normal heart sound present, no gallops, no murmurs and no rubs Bruits: no abdominal aortic bruits and no carotid bruits GI Palpation (GI): No Abdominal aortic bruit present, Soft to palpation, nontender, No hepatosplenomegaly present and No Rebound tenderness present Auscultation: normal bowel sounds General: Yes no CVA tenderness Back/Spine/Pelvis Back: no CVA tenderness Cervical Spine: cervical ROM normal and No Cervical spine tenderness Thoracic/Lumbar Spine: thoraco-lumbar ROM normal, No pain with thoraco-lumbar ROM, No thoracic spinal tenderness and No lumbar spinal tenderness Skin Lesions: no lesions Rashes: no rashes Trauma: no lacerations or abrasions Wounds: no wounds Nails: normal Neuro General: patient oriented x3 Cranial nerves: Yes Equal, round and reactive pupils present Cognition (Neuro): normal cognition Gait exam (Neuro): Normal gait present Motor exam (neuro): 5/5 motor strength present throughout Sensory Exam: No Sensory deficit (Neuro) Deep tendon reflexes (DTR's): Right patellar reflex intensity grade: 2+ and Left patellar reflex intensity grade: 2+ Extrem General: Yes normal to inspection and No edema Psych Appearance: grossly normal Affect: normal affect Attitude: cooperative Thought process: Normal thought process present Coding Level of Care Code Est Pt Level 3 (76025) Est Pt Prev Care 40-64y(13333) Diagnoses Adult general medical exam Z00.00 Hypertension I10 Mixed hyperlipidemia E78.2 Diabetes E11.9 Screening for prostate cancer Z12.5 Screening for colon cancer Z12.11 Change in hearing H91.90 Additional Codes RASHAD-7 Assessment Billing - RASHAD-7 Assessment Tool: RASHAD-7 Assessment 67320 ([id number]) PHQ-9 - 33468 - PHQ-9 Billing: Yes ([id number]) Assessment & Plan Assessment & Plan (1) Adult general medical exam: Code(s): Z00.00 - Encounter for general adult medical examination without abnormal findings Category: Medical Plan: 45-year-old male presents for complete physical exam Encouraged healthy diet with active lifestyle and plenty of exercise (2) Hypertension: Code(s): I10 - Essential (primary) hypertension Category: Medical Plan: Blood pressure is a little on low side today Encouraged good hydration Will give him a blood pressure monitor If blood pressures are low at home and/or frequent symptoms such as lightheadedness, will have him decrease lisinopril (3) Mixed hyperlipidemia: Code(s): E78.2 - Mixed hyperlipidemia Category: Medical Plan: Triglycerides were significantly elevated. Now much improved with control of blood sugars. Repeat LDL cholesterol shows mild elevation in LDL cholesterol Will recheck this prior to next visit (4) Diabetes: Code(s): E11.9 - Type 2 diabetes mellitus without complications Category: Medical Plan: A1c 5.8%. Controlled and goal is less than 7.0% He has had a few low blood sugars into the 60s He is not sure if he was keeping up with food intake Will have him ease up on Lantus. He will decreased from 14 units daily to 12 units daily Continue metformin as prescribed Continue diabetic diet and weight loss Patient has an ophthalmology appointment scheduled. Patient is interested in GLP 1 medication. We can discuss this further when he has had blood sugars well controlled without low blood sugars (5) Screening for prostate cancer: Code(s): Z12.5 - Encounter for screening for malignant neoplasm of prostate Category: Medical Plan: PSA was within normal limits at last measurement this year Will continue annual screening (6) Screening for colon cancer: Code(s): Z12.11 - Encounter for screening for malignant neoplasm of colon Category: Medical Plan: He does not think he has ever had a colonoscopy He is due this year for 1st screening colonoscopy Referred to Gastroenterology (7) Change in hearing: Code(s): H91.90 - Unspecified hearing loss, unspecified ear Category: Medical Plan: Patient notes decreased hearing in right ear Refer for audiology Orders: Orders Comprehensive [place]. Panel Fast Today E78.2 - Mixed hyperlipidemia, Z00.00 - Encounter for general adult medical examination without abnormal findings Lipid Panel Today E78.2 - Mixed hyperlipidemia, Z00.00 - Encounter for general adult medical examination without abnormal findings Hemoglobin A1c Today E11.9 - Type 2 diabetes mellitus without complications, R73.01 - Impaired fasting glucose Referrals Gastroenterology Referral Z12.11 - Encounter for screening for malignant neoplasm of colon Audiology Referral H91.90 - Unspecified hearing loss, unspecified ear, H91.91 - Unspecified hearing loss, right ear Medications: New blood pressure monitor Automatic, Digital. Dx: I10. Daily As directed, 999 days/lifetime 1 ea 0RF I10 - Essential (primary) hypertension Changed From insulin glargine (Lantus Solostar U-100 Insulin) 10 units (0.1 mL) subcut QPM 15 mL 3RF To insulin glargine (Lantus Solostar U-100 Insulin) 12 units (0.12 mL) subcut QPM 15 mL 3RF
[2025-10-13 14:17] VITALS: BP 103/55; PULSE 69; RESP 16; TEMP 36.6; O2SAT 96; BMI 34.8
== END 2025-10-13 15:15 | disposition home or self-care (01) ==
LOC: HO.HMCFM 14:07
PROVIDERS: PCP Family Medicine; Visit Provider Family Medicine
DX: Z00.00 Encounter for general adult medical examination without abnormal findings (principal); E11.9 Type 2 diabetes mellitus without complications; E78.2 Mixed hyperlipidemia; I10 Essential (primary) hypertension; H91.91 Unspecified hearing loss, right ear; Z12.5 Encounter for screening for malignant neoplasm of prostate; Z12.11 Encounter for screening for malignant neoplasm of colon

== ENCOUNTER → 2025-10-13 14:06 | Outpatient (BNVA) | payer OTHER, SELFPAY | PROVIDERS: PCP Family Medicine; Visit Provider Family Medicine | DX: Z00.00 Encounter for general adult medical examination without abnormal findings (principal); Z12.5 Encounter for screening for malignant neoplasm of prostate; Z12.11 Encounter for screening for malignant neoplasm of colon; I10 Essential (primary) hypertension; E78.2 Mixed hyperlipidemia; E11.9 Type 2 diabetes mellitus without complications; H91.90 Unspecified hearing loss, unspecified ear | CPT/HCPCS: 83036; 96127 ==